=== PATIENT | male | born 1995 | race Caucasian/White ===

== ENCOUNTER 2019-07-12 17:34 | Observation (INO) | payer BC, OTHER ==
[~2019-07-12] VITALS: Ht 187.9 cm; Wt 73.8 kg
[2019-07-12] MEDS ORDERED: LACTATED RINGERS 1,000 ML IV ONE (17:39)
--- NOTE | 2019-07-12 17:44 | ED General ---
General Stated Complaint: CONFUSION, LETHARGIC Source of Information: Other (friends) Exam Limitations: No Limitations History of Present Illness Date Seen by Provider: Jul 12, 2019 Time Seen by Provider: 17:42 Initial Comments To ER by private vehicle with reports of unresponsiveness. He was part of the choir group that was going to a performance, a female that was with him notified the rest of the choir that he was unresponsive and they recommended she bring him to the emergency room. They went to the entrance initially and decided to walk from that entrance to the emergency room entrance. During that walk he collapsed on the sidewalk. No history of this. He did appear to have seizure- like activity according to friends. He is otherwise healthy. Girlfriend states that he had several episodes of vomiting yesterday from what was believed to be bad [place] food. Timing/Duration: 1-2 Days Severity: Moderate Allergies and Home Medications Allergies Coded Allergies: No Allergy Information Available (Unverified , 07/12/19) Patient Home Medication List Home Medication List Reviewed: Yes Review of Systems Review of Systems Constitutional: see HPI, other (unable to obtain due to altered mental status) Past Ywczkly-Grptad-Wqxfen Hx Patient Social History Recent Foreign Travel: No Contact w/Someone Who Travel: No Physical Exam Vital Signs Vital Signs - First Documented 07/12/19 17:34 Temp 36.7 Pulse 126 Resp 22 B/P (MAP) 138/71 (93) Pulse Ox 98 O2 Delivery Room Air Capillary Refill : Height, Weight, BMI Height: '" Weight: lbs. oz. kg; BMI Method: General Appearance: Other (placed in a wheelchair bias brought to the emergency room, snoring respirations, drooling, pupils are not pinpoint. He has alternating lethargy and then awakens and sits upright in bed but does not respond verbally. He is tachycardic at about 120 to 1:30. Blood pressure is adequate he is not febrile. He has an abrasion to the dorsal knuckle right hand.) Eyes: Bilateral Eye Normal Inspection, Bilateral Eye PERRL HEENT: PERRL/EOMI, TMs Normal Respiratory: No Accessory Muscle Use, No Respiratory Distress Gastrointestinal: Non Tender, Soft Extremity: Normal Capillary Refill, Normal Inspection Neurologic/Psychiatric: Alert, Oriented x3 Skin: Normal Color, Warm/Dry Focused Exam Lactate Level 07/12/19 18:22: Lactic Acid Level 6.26*H Lactic Acid Level Laboratory Tests Test 07/12/19 18:22 Lactic Acid Level 6.26 MMOL/L (0.50-2.00) *H Progress/Results/Core Measures Suspected Sepsis SIRS Temperature: Pulse: Respiratory Rate: Laboratory Tests 07/12/19 17:42: White Blood Count 15.5H Blood Pressure / Mean: 07/12/19 18:22: Lactic Acid Level 6.26*H Laboratory Tests 07/12/19 17:42: Creatinine 1.03, Platelet Count 287, Total Bilirubin 0.7 Results/Orders Lab Results Laboratory Tests Test 07/12/19 17:42 07/12/19 17:54 07/12/19 18:22 Range/Units White Blood Count 15.5 H 4.3-11.0 10^3/uL Red Blood Count 4.83 4.35-5.85 10^6/uL Hemoglobin 14.9 13.3-17.7 G/DL Hematocrit 43 40-54 % Mean Corpuscular Volume 88 80-99 FL Mean Corpuscular Hemoglobin 31 25-34 PG Mean Corpuscular Hemoglobin Concent 35 32-36 G/DL Red Cell Distribution Width 13.5 10.0-14.5 % Platelet Count 287 130-400 10^3/uL Mean Platelet Volume 10.1 7.4-10.4 FL Neutrophils (%) (Auto) 56 42-75 % Lymphocytes (%) (Auto) 32 12-44 % Monocytes (%) (Auto) 10 0-12 % Eosinophils (%) (Auto) 1 0-10 % Basophils (%) (Auto) 1 0-10 % Neutrophils # (Auto) 8.6 H 1.8-7.8 X 10^3 Lymphocytes # (Auto) 5.0 H 1.0-4.0 X 10^3 Monocytes # (Auto) 1.6 H 0.0-1.0 X 10^3 Eosinophils # (Auto) 0.2 0.0-0.3 10^3/uL Basophils # (Auto) 0.1 0.0-0.1 10^3/uL Neutrophils % (Manual) 90 % Lymphocytes % (Manual) 29 % Monocytes % (Manual) 10 % Eosinophils % (Manual) 1 % Band Neutrophils % Blood Morphology Comment NORMAL Sodium Level 145 135-145 MMOL/L Potassium Level 3.4 L 3.6-5.0 MMOL/L Chloride Level 106 98-107 MMOL/L Carbon Dioxide Level 13 L 21-32 MMOL/L Anion Gap 26 H 5-14 MMOL/L Blood Urea Nitrogen 11 7-18 MG/DL Creatinine 1.03 0.60-1.30 MG/DL Estimat Glomerular Filtration Rate > 60 BUN/Creatinine Ratio 11 Glucose Level 159 H 70-105 MG/DL Calcium Level 9.9 8.5-10.1 MG/DL Corrected Calcium 8.5-10.1 MG/DL Total Bilirubin 0.7 0.1-1.0 MG/DL Aspartate Amino Transf (AST/SGOT) 20 5-34 U/L Alanine Aminotransferase (ALT/SGPT) 18 0-55 U/L Alkaline Phosphatase 80 40-136 U/L Total Creatine Kinase 153 30-200 U/L Total Protein 8.0 6.4-8.2 GM/DL Albumin 5.2 H 3.2-4.5 GM/DL Salicylates Level < 5.0 L 5.0-20.0 MG/DL Acetaminophen Level < 10 L 10-30 UG/ML Serum Alcohol < 10 <10 MG/DL Urine Color YELLOW Urine Clarity CLOUDY Urine pH 6.0 5-9 Urine Specific [place] >=1.030 1.016-1.022 Urine Protein 2+ H NEGATIVE Urine Glucose (UA) NEGATIVE NEGATIVE Urine Ketones NEGATIVE NEGATIVE Urine Nitrite NEGATIVE NEGATIVE Urine Bilirubin NEGATIVE NEGATIVE Urine Urobilinogen 0.2 < = 1.0 MG/DL Urine Leukocyte Esterase NEGATIVE NEGATIVE Urine RBC (Auto) 2+ H NEGATIVE Urine RBC 5-10 H /HPF Urine WBC RARE /HPF Urine Crystals NONE /LPF Urine Bacteria MODERATE H /HPF Urine Casts NONE /LPF Urine White Blood Cell Casts 5-10 H /LPF Urine Mucus MODERATE H /LPF Urine Culture Indicated YES Urine Opiates Screen NEGATIVE NEGATIVE Urine Oxycodone Screen NEGATIVE NEGATIVE Urine Methadone Screen NEGATIVE NEGATIVE Urine Propoxyphene Screen NEGATIVE NEGATIVE Urine Barbiturates Screen NEGATIVE NEGATIVE Ur Tricyclic Antidepressants Screen NEGATIVE NEGATIVE Urine Phencyclidine Screen NEGATIVE NEGATIVE Urine Amphetamines Screen NEGATIVE NEGATIVE Urine Methamphetamines Screen NEGATIVE NEGATIVE Urine Benzodiazepines Screen NEGATIVE NEGATIVE Urine Cocaine Screen NEGATIVE NEGATIVE Urine Cannabinoids Screen NEGATIVE NEGATIVE Lactic Acid Level 6.26 *H 0.50-2.00 MMOL/L My Orders Orders - BILL RYAN APRN Ct Head/Cervical Spine Wo (07/12/19 17:52) Lactic Acid Analyzer (07/12/19 18:18) Prolactin (07/12/19 18:39) Creatine Kinase (07/12/19 18:39) Medications Given in ED Current Medications Medications Dose Ordered Sig/Dunia Route Start Time Stop Time Status Last Admin Dose Admin Lactated Ringer's 1,000 ml @ 0 mls/hr Q0M ONCE IV 07/12/19 17:39 07/12/19 17:43 DC 07/12/19 17:46 0 MLS/HR Naloxone HCl 0.4 mg ONCE ONCE IV 07/12/19 17:45 07/12/19 17:46 DC 07/12/19 17:46 0.4 MG Vital Signs/I&O 07/12/19 17:34 Temp 36.7 Pulse 126 Resp 22 B/P (MAP) 138/71 (93) Pulse Ox 98 O2 Delivery Room Air Capillary Refill : Diagnostic Imaging Diagonstic Imaging: CT Comments NAME: ANNABEL BARTON [facility] REC#: [id number] PT STATUS: REG ER : 1995 PHYSICIAN: BILL RYAN APRN ADMIT DATE: 07/12/19/ER Draft Date of Exam:07/12/19 CT HEAD/CERVICAL SPINE WO PROCEDURE: CT head and CT cervical spine without contrast. TECHNIQUE: Multiple contiguous axial images were obtained through the brain and cervical spine without the use of intravenous contrast. Sagittal and coronal reformations through the cervical spine were then performed. Auto Exposure Controls were utilized during the CT exam to meet ALARA standards for radiation dose reduction. INDICATION: Confusion, lethargy, seizure-like activity. COMPARISON STUDY: None. FINDINGS: Noncontrast CT scan of the head demonstrates no mass effect, midline shift, hemorrhage or extra-axial fluid collections. Ricketts-white matter differentiation is normal. Ventricles, cortical sulci, and basilar cisterns are normal. No fractures are present. Cervical spine: Noncontrast CT scan of the cervical spine demonstrates no fracture or subluxation. The soft tissues appear normal. No stenosis is present. IMPRESSION: Normal CT scan of the head and cervical spine. Dictated on workstation # [id number] Dict: 03/02/20 1813 Trans: 07/12/191818 [facility] [id number] Interpreted by: JANET YUNG MD Electronically signed by: Departure Communication (Admissions) Time/Spoke to Admitting Phy: 18:[address] Silveira, we'll admit with observation, anion gap was high with CO2 low, suspect lactic acidosis as a result of true seizure disorder. I spoke with mother on the phone, she herself had a seizure at about this age but hasn't had any troubles since then. He denies any recent illnesses, strep throat symptoms such as sore throat or fevers or cough. I questioned the specifically after reviewing his urinalysis. 1750-0.4 mg of Narcan had no effect on mentation or alertness. 1841-he is alert, knows he is at the hospital, doesn't remember what happened. I spoke with mother on the phone, she states that at about his age or in high school she had a seizure episode but has had no problems since then. She states she is otherwise healthy. His heart rate has declined from 120s to 130s on arrival down to 80s. He did not bite his tongue or lose control of bowel and bladder. Serum prolactin ordered as this is helpful in differentiating pseudoseizures from epileptic seizures if elevated. This is a send out test but will be helpful for follow-up care Impression Primary Impression: Seizure-like activity Disposition: ADMITTED INPATIENT Condition: Stable Admissions Decision to Admit Reason: Admit from ER (General) Decision to Admit/Date: Jul 12, 2019 Time/Decision to Admit Time: 18:35 Departure-Patient Inst. Referrals: NO,LOCAL PHYSICIAN (PCP) Primary Care Physician BILL RYAN APRN Jul 12, 2019 17:44
[2019-07-12] MEDS ORDERED: NALOXONE 0.4 MG/ML 1 ML (NARCAN) VIAL IV ONE (17:45)
[2019-07-12 17:48] LABS: BASOPHILS # (AUTO) 0.1 10^3/uL (0.0-0.1); BASOPHILS % (AUTO) 1 % (0-10); EOSINOPHILS # (AUTO) 0.2 10^3/uL (0.0-0.3); EOSINOPHILS % (AUTO) 1 % (0-10); HEMATOCRIT 43 % (40-54); HEMOGLOBIN 14.9 G/DL (13.3-17.7); LYMPHOCYTES % (AUTO) 32 % (12-44); MEAN CORPUSCULAR HEMOGLOBIN 31 PG (25-34); MEAN CORPUSCULAR HGB CONC 35 G/DL (32-36); MEAN CORPUSCULAR VOLUME 88 FL (80-99); MEAN PLATELET VOLUME 10.1 FL (7.4-10.4); MONOCYTES # (AUTO) 1.6 X 10^3 (0.0-1.0); MONOCYTES % (AUTO) 10 % (0-12); NEUTROPHILS # (AUTO) 8.6 X 10^3 (1.8-7.8); NEUTROPHILS % (AUTO) 56 % (42-75); PLATELET COUNT 287 10^3/uL (130-400); RED CELL DISTRIBUTION WIDTH 13.5 % (10.0-14.5); WHITE BLOOD COUNT 15.5 10^3/uL (4.3-11.0)
[2019-07-12 18:01] LABS: BILIRUBIN,URINE NEGATIVE (NEGATIVE); CLARITY,URINE CLOUDY; COLOR,URINE YELLOW; GLUCOSE, URINE (UA) NEGATIVE (NEGATIVE); KETONES,URINE NEGATIVE (NEGATIVE); LEUKOCYTE ESTERASE ,URINE NEGATIVE (NEGATIVE); NITRITE,URINE NEGATIVE (NEGATIVE); PROTEIN,URINE 2+ (NEGATIVE)
[2019-07-12 18:09] LABS: BACTERIA,URINE MODERATE /HPF; WBC,URINE RARE /HPF
[2019-07-12 18:14] LABS: ALANINE AMINOTRANSFERASE 18 U/L (0-55); ALBUMIN 5.2 GM/DL (3.2-4.5); ALKALINE PHOSPHATASE 80 U/L (40-136); BILIRUBIN,TOTAL 0.7 MG/DL (0.1-1.0); BUN/CREATININE RATIO 11; CALCIUM 9.9 MG/DL (8.5-10.1); CARBON DIOXIDE 13 MMOL/L (21-32); CHLORIDE 106 MMOL/L (98-107); CREATININE SERUM 1.03 MG/DL (0.60-1.30); GFR ESTIMATED > 60; GLUCOSE 159 MG/DL (70-105); POTASSIUM 3.4 MMOL/L (3.6-5.0); SALICYLATE < 5.0 MG/DL (5.0-20.0); SODIUM 145 MMOL/L (135-145)
[2019-07-12 18:17] LABS: ACETAMINOPHEN < 10 UG/ML (10-30)
[2019-07-12 18:18] LABS: EOSINOPHILS % (MANUAL) 1 %; LYMPHOCYTES % (MANUAL) 29 %; MONOCYTES % (MANUAL) 10 %; NEUTROPHILS % (MANUAL) 90 %
[2019-07-12 18:19] LABS: RBC MORPH NORMAL
--- NOTE | 2019-07-12 18:19 | Diagnostic Imaging Report ---
PROCEDURE: CT head and CT cervical spine without contrast. TECHNIQUE: Multiple contiguous axial images were obtained through the brain and cervical spine without the use of intravenous contrast. Sagittal and coronal reformations through the cervical spine were then performed. Auto Exposure Controls were utilized during the CT exam to meet ALARA standards for radiation dose reduction. INDICATION: Confusion, lethargy, seizure-like activity. COMPARISON STUDY: None. FINDINGS: Noncontrast CT scan of the head demonstrates no mass effect, midline shift, hemorrhage or extra-axial fluid collections. Ricketts-white matter differentiation is normal. Ventricles, cortical sulci, and basilar cisterns are normal. No fractures are present. Cervical spine: Noncontrast CT scan of the cervical spine demonstrates no fracture or subluxation. The soft tissues appear normal. No stenosis is present. IMPRESSION: Normal CT scan of the head and cervical spine. Dictated by: Dictated on workstation # [id number]
[2019-07-12 18:20] LABS: AMPHETAMINE SCREEN, URINE NEGATIVE (NEGATIVE); BARBITURATE SCREEN URINE NEGATIVE (NEGATIVE); BENZODIAZEPINES SCREEN URINE NEGATIVE (NEGATIVE); CANNABINOID SCREEN, URINE NEGATIVE (NEGATIVE); COCAINE SCREEN URINE NEGATIVE (NEGATIVE); METHADONE STAT NEGATIVE (NEGATIVE); METHAMPHETAMINE SCREEN URINE S NEGATIVE (NEGATIVE); OPIATE SCREEN URINE NEGATIVE (NEGATIVE); OXYCODONE STAT NEGATIVE (NEGATIVE); PROPOXYPHENE STAT NEGATIVE (NEGATIVE); TRICYCLIC ANTIDEPRESSANTS SCRE NEGATIVE (NEGATIVE)
--- NOTE | 2019-07-12 20:00 | NUR ---
ANNABEL BARTON admitted to room 433-1, with an admitting diagnosis of SEIZURE LIKE ACTIVITY, on 07/12/19 from ED via , accompanied by ED STAFF. ANNABEL BARTON introduced to surroundings, call light, bed controls, phone, TV, temperature control, lights, meal times, smoking policy, visitor policy, side rail policy, bathrooms and showers. Patient Rights given to patient in the handbook. ANNABEL BARTON verbalizes understanding that [facility] is not responsible for the loss or damage to any personal effects or valuables that are kept in the patients posession during their hospitalization. ANNABEL BARTON verbalizes understanding of Interdisciplinary Patient Education. Patient and/or family were informed about the Rapid Response Team and its purpose.
[2019-07-12] MEDS ORDERED: ONDANSETRON 4 MG/2 ML (SDV) Z0FRAN IV PRN (20:15)
[2019-07-12] MEDS ORDERED: LORazepam INJ 2 MG/ML (ATIVAN) VIAL IM/IV PRN (20:15)
[2019-07-12] MEDS ORDERED: CATHETER FLUSH 10 ML SYR IV PRN (20:15)
[2019-07-12] MEDS: NS IV 1000 ML 1,000 ML IV SCH (20:28)
[2019-07-12 21:33] VITALS: BP 128/63
[2019-07-13] VITALS: BP 111/67
[2019-07-13 04:00] VITALS: BP 114/68
[2019-07-13] MEDS: NS IV 1000 ML 1,000 ML IV SCH (04:28)
[2019-07-13 05:22] LABS: BASOPHILS % (AUTO) 0 % (0-10); EOSINOPHILS # (AUTO) 0.2 10^3/uL (0.0-0.3); EOSINOPHILS % (AUTO) 2 % (0-10); HEMATOCRIT 36 % (40-54); HEMOGLOBIN 12.6 G/DL (13.3-17.7); LYMPHOCYTES % (AUTO) 21 % (12-44); MEAN CORPUSCULAR HEMOGLOBIN 31 PG (25-34); MEAN CORPUSCULAR HGB CONC 35 G/DL (32-36); MEAN CORPUSCULAR VOLUME 88 FL (80-99); MEAN PLATELET VOLUME 9.9 FL (7.4-10.4); MONOCYTES % (AUTO) 10 % (0-12); NEUTROPHILS # (AUTO) 6.5 X 10^3 (1.8-7.8); NEUTROPHILS % (AUTO) 67 % (42-75); PLATELET COUNT 186 10^3/uL (130-400); RED CELL DISTRIBUTION WIDTH 13.3 % (10.0-14.5); WHITE BLOOD COUNT 9.6 10^3/uL (4.3-11.0)
[2019-07-13 05:37] LABS: ALANINE AMINOTRANSFERASE 16 U/L (0-55); ALKALINE PHOSPHATASE 61 U/L (40-136); BILIRUBIN,TOTAL 0.8 MG/DL (0.1-1.0); BUN/CREATININE RATIO 13; CALCIUM 9.1 MG/DL (8.5-10.1); CARBON DIOXIDE 23 MMOL/L (21-32); CHLORIDE 106 MMOL/L (98-107); CREATININE SERUM 0.84 MG/DL (0.60-1.30); GFR ESTIMATED > 60; GLUCOSE 111 MG/DL (70-105); POTASSIUM 3.4 MMOL/L (3.6-5.0); SODIUM 141 MMOL/L (135-145)
[2019-07-13] MEDS ORDERED: ACETAMINOPHEN 325 MG TABLET PO PRN (07:15)
[2019-07-13 08:00] VITALS: BP 118/51
[2019-07-13] MEDS ORDERED: CETI10TA21 PO (09:49)
[2019-07-13] MEDS ORDERED: ACET325T38 PO (09:49)
--- NOTE | 2019-07-13 09:50 | NUR ---
SPOKE WITH THE PT TO COMPLETE THE MED REC. PT DENIES TAKING ANY PRESCRIPTION MEDICATION AND THE ONLY OTC MEDS HE USES ARE TYLENOL AND ZYRTEC AND BOTH ARE PRN. I DID UPDATE THE PATIENT PREFERRED PHARM.
[2019-07-13 12:00] VITALS: BP 117/57
--- NOTE | 2019-07-13 12:55 | NUR ---
PT REPORTS NO TROUBLE URINATING AFTER USING THE RESTROOM. DR HO NOTIFIED. PT INSTRUCTED TO NOTIFY DR IF SYMPTOMS OF BURNING/HESITANCY RETURN.
--- NOTE | 2019-07-13 12:59 | Short Stay Summary-Hospitalist ---
History of Present Illness HPI/Chief Complaint This is a 23-year-old white male who who presented to the emergency room last evening with confusion and lethargy and tonic-clonic jerking. The patient had become intoxicated 24 hours before and had been vomiting overnight. He then went to his class yesterday morning as normal but felt a little fuzzy headed and then went require practice where he was becoming increasingly more disoriented. He was confused and has no memory of really what was transpiring at this juncture. His girlfriend gave the primary history. She notes that he was stumbling and was unable to answer questions appropriately. He then fell to the ground and began having tonic-clonic jerking without loss of continence. In addition he began vomiting and she rolled him on his side and opened his jaw also so He wouldn't aspirate. She was able to transport him by private vehicle to the emergency room where he was found to be lethargic and somewhat confused. Labs showed an elevated white count with an elevated lactic acid and positive a nion gap. Urine drug screen and alcohol level was negative. The patient then remained begins to remember being down in the emergency room and being transported upstairs. The interview today was done with his girlfriend in the room and his mother. His mother had had a history of a seizure at about the same age and is never had a recurrence. Source: patient, family Exam Limitations: no limitations Date Seen 07/13/19 Time Seen by a Provider: 11:45 Attending Physician Debby Solo MD Referring Physician Date of Admission Jul 12, 2019 at 18:37 Home Medications & Allergies Home Medications Reviewed patient Home Medication Reconciliation performed by pharmacy medication reconciliations cable technician and/or nursing. Patients Allergies have been reviewed. Allergies Allergies Coded Allergies No Allergy Information Available (Unverified07/12/19) Past Ucinptg-Ftnlmy-Egvapq Hx Past Med/Social Hx: Reviewed Nursing Past Med/Soc Hx Patient Social History Marrital Status: single Employed/Student: student, full-time Alcohol Use: Denies Use Recreational Drug Use: No Smoking Status: Never a Smoker Recent Foreign Travel: No Contact w/other who traveled: No Recent Hopitalizations: No Recent Infectious Disease Expo: No Immunizations Up To Date Tetanus Booster (TDap): Unknown Pediatric: Yes Seasonal Allergies Seasonal Allergies: Yes Past Medical History Respiratory: Asthma (As a child) History of Blood Disorders: No Review of Systems Constitutional: see HPI EENTM: no symptoms reported Respiratory: no symptoms reported Cardiovascular: no symptoms reported Gastrointestinal: vomiting Genitourinary: no symptoms reported Musculoskeletal: no symptoms reported Skin: no symptoms reported Psychiatric/Neurological: No Symptoms Reported Physical Exam Physical Exam Vital Signs Vital Signs - First Documented 07/12/19 17:34 Temp 36.7 Pulse 126 Resp 22 B/P (MAP) 138/71 (93) Pulse Ox 98 O2 Delivery Room Air Capillary Refill : Less Than 3 Seconds Height, Weight, BMI Height: '" Weight: lbs. oz. kg; 20.90 BMI Method: General Appearance: No Apparent Distress, WD/WN, Other (placed in a wheelchair bias brought to the emergency room, snoring respirations, drooling, pupils are not pinpoint. He has alternating lethargy and then awakens and sits upright in bed but does not respond verbally. He is tachycardic at about 120 to 1:30. Blood pressure is adequate he is not febrile. He has an abrasion to the dorsal knuckle right hand.) Eyes: Bilateral Eye Normal Inspection, Bilateral Eye PERRL HEENT: PERRL/EOMI, TMs Normal Respiratory: No Accessory Muscle Use, No Respiratory Distress Gastrointestinal: Non Tender, Soft Extremity: Normal Capillary Refill, Normal Inspection Neurologic/Psychiatric: Alert, Oriented x3 Skin: Normal Color, Warm/Dry Results Results/Procedures Labs Laboratory Tests 07/12/19 17:42 07/13/19 04:57 Patient resulted labs reviewed. Imaging: Reviewed Imaging Report Short Stay Diagnosis Discharge Diagnosis-Short Stay Admission Diagnosis New onset seizures Lactic acidosis secondary to number 1 Dehydration The patient overnight has been stable and hydrated. He is urinating and neurologically is completely intact. Final Discharge Diagnosis New onset seizures Lactic acidosis resolved Dehydration resolved Plan to discharge with close follow-up at the [facility]. The patient is instructed not to drive. He is also instructed to not drink and to avoid dehydration and fatigue. He is advised that if the seizures recur then we will need to refer to neurologist with an EEG and medications Conclusion Plan Discharge home in the care of his mother and girlfriend. Follow-up with Dr. Ho at the [facility] on Thursday. Do not drive for at least 6 months. Diagnosis/Problems Diagnosis/Problems (1) Seizure-like activity Status: Acute Clinical Quality Measures DVT/VTE Risk/Contraindication: Risk Factor Score Per Nursin RFS Level Per Nursing on Admit: 1=Low/No VTE PPX Copy Copies To 1: MARZENA HO MD, KATHLEEN M MD Jul 13, 2019 12:59
[2019-07-13 14:19] VITALS: BP 117/57
--- OUTSIDE RECORDS SUMMARY | 2019-07-14 21:35 | XMS REPORT ---
Author Author Hardy Vaz Organization [facility] Address [address] [place] [address] Care Team Providers Care Senior Payroll Specialist Name Role Phone Bridgette Vaz Unavailable PROBLEMS Type Condition ICD9-CM Code [id number] Code Onset Dates Condition S tatus SNOMED Code Problem Cough variant asthma 493.82 Active 021313181 Problem Asthma, unspecified 493.90 Active 860655093 Problem Wellness examination Z00.00 Active 248917334783783 Problem Cough Variant Asthma J45.991 Active 670561290 Problem Ocular migraine 346.80 Active 9565 5001 Problem Acne vulgaris 706.1 Active 371012 05 Problem Acne Vulgaris L70.0 Active 168739 00 Problem Other migraine, not intractable, without status migrainosu s G43.809 Active 116834444 ALLERGIES Unknown Allergies SOCIAL HISTORY No smoking Hx information available PLAN OF CARE VITAL SIGNS MEDICATIONS Unknown Medications RESULTS No Results PROCEDURES No Known procedures IMMUNIZATIONS No Known Immunizations
--- OUTSIDE RECORDS SUMMARY | 2019-07-14 21:35 | XMS REPORT ---
Author Author Hardy Vaz Organization [facility] Address [address] [place] [address] Care Team Providers Care Shoe Cobbler Name Role Phone Bridgette Vaz Unavailable PROBLEMS Type Condition ICD9-CM Code [id number] Code Onset Dates Condition S tatus SNOMED Code Problem Asthma, unspecified 493.90 Active 028949410 Problem Cough Variant Asthma J45.991 Active 113000030 Problem Acne Vulgaris L70.0 Active 232285 00 Problem Acne vulgaris 706.1 Active 251659 05 Problem Cough variant asthma 493.82 Active 389861631 Problem Other migraine, not intractable, without status migrainosu s G43.809 Active 448518005 Problem Ocular migraine 346.80 Active 9565 5001 ALLERGIES Unknown Allergies SOCIAL HISTORY No smoking Hx information available PLAN OF CARE VITAL SIGNS MEDICATIONS Unknown Medications RESULTS No Results PROCEDURES No Known procedures IMMUNIZATIONS No Known Immunizations
== END 2019-07-13 14:19 | disposition home or self-care (01) ==
LOC: ER 17:38 → 4TH 18:37
PROVIDERS: ADMIT Family Medicine; ATTEND Family Medicine
DX: E56.9 Vitamin deficiency, unspecified (principal); R41.0 Disorientation, unspecified; E87.2 Acidosis; E86.0 Dehydration; J45.909 Unspecified asthma, uncomplicated
CPT/HCPCS: 36415; 70450; 72125; 80053; 80306; 80320; 80329; 81000; 82550; 83605; 84146; 85007; 85025; 85027; 87088; 93005; 93041; G0378

== ENCOUNTER 2019-07-27 20:13 | Observation (INO) | payer BC ==
[~2019-07-27] VITALS: Ht 185.4 cm; Wt 74.8 kg
[~2019-07-27 20:13] MED LIST: ACET325T38 PO; CETI10TA21 PO
[2019-07-27] MEDS ORDERED: ONDANSETRON 4 MG/2 ML (SDV) Z0FRAN IVP ONE (20:15)
[2019-07-27] MEDS ORDERED: LACTATED RINGERS 1,000 ML IV ONE ×2 (20:15→20:58)
--- NOTE | 2019-07-27 20:22 | ED Neurological Problem ---
General Stated Complaint: SEIZURE History of Present Illness Date Seen by Provider: Jul 27, 2019 Time Seen by Provider: 20:15 Initial Comments 23-year-old male brought by friends to the emergency department after having a seizure at approximately 1945 tonight. His friends report that he was standing on the porch with them when he sat himself down on the ground and then began to convulse. They believe it lasted approximately 30 seconds. They were able to assist him to the car and drive him here. He was seen here earlier this month for new onset seizure disorder, he had labs and CT study. His prolactin level was 82.2. He did have follow-up at [facility] with Dr. Ho and they were going to observe him at this time to determine if medication would be needed or not. He's had no history of seizures in the past. His mother is in health care in [facility] and reports seizure disorder that began at approximately the same age as her son is now. He no incontinence with the seizure tonight. He is nonverbal at presentation to the ED. Timing/Duration: 1 hour Associated Symptoms: No confusion, No fatigue, No fever/chills, No insomnia, No loss of consciousness, No muscle spasms, No nausea/vomiting, No numbness in legs/feet, No paresthesia, No ringing in ears; seizures; No sleepy, No slurred speech, No tingling in legs/feet, No trouble walking, No vision changes, No weakness, No other Allergies and Home Medications Allergies Coded Allergies: No Allergy Information Available (Unverified , 07/12/19) Home Medications Acetaminophen 325 Mg Tablet, 650 MG PO Q8H PRN for PAIN-MILD (1-4), (Reported) Cetirizine HCl 10 Mg Tablet, 10 MG PO DAILY PRN for ALLERGY SYMPTOMS, (Reported) Levetiracetam 500 Mg Tablet, 500 MG PO BID Prescribed by: DELORIS PEÑA on 07/27/192114 Patient Home Medication List Home Medication List Reviewed: Yes Review of Systems Review of Systems Constitutional: no symptoms reported, see HPI Psychiatric/Neurological: See HPI, [place] Seizures All Other Systems Reviewed Negative Unless Noted: Yes Past Ormwygi-Xrbfxk-Xhbdkk Hx Past Med/Social Hx: Reviewed Nursing Past Med/Soc Hx Patient Social History Recent Hopitalizations: No Immunizations Up To Date Tetanus Booster (TDap): Unknown PED Vaccines UTD: Yes Seasonal Allergies Seasonal Allergies: Yes Past Medical History Surgeries: No Respiratory: No Cardiac: No Neurological: No Genitourinary: No Gastrointestinal: No Musculoskeletal: No Endocrine: No HEENT: No Cancer: No Psychosocial: No Integumentary: No Blood Disorders: No Physical Exam Vital Signs Vital Signs - First Documented 07/27/19 20:13 Temp 37.0 Pulse 110 Resp 18 B/P (MAP) 148/85 (106) O2 Delivery Room Air Capillary Refill : Height, Weight, BMI Height: '" Weight: lbs. oz. kg; 20.90 BMI Method: General Appearance: WD/WN, mild distress HEENT: PERRL/EOMI, normal ENT inspection, TMs normal, pharynx normal Neck: non-tender, full range of motion, supple, normal inspection Respiratory: chest non-tender, lungs clear, normal breath sounds Cardiovascular: normal peripheral pulses, regular rate, rhythm Gastrointestinal: normal bowel sounds, non tender, soft Extremities: normal range of motion, non-tender, normal inspection, normal capillary refill Neurologic/Psychiatric: no motor/sensory deficits, alert, normal mood/affect, oriented x 3 Crainal Nerves: normal hearing; No normal speech; PERRL; No facial asymmetry, No facial droop Motor/Sensory: no motor deficit (Follows all commands), no sensory deficit (withdrawals to painful stimuli (IV)) Skin: normal color, warm/dry Lymphatic: no adenopathy Progress/Results/Core Measures Results/Orders Lab Results Laboratory Tests Test 07/27/19 20:18 07/27/19 20:20 07/27/19 20:25 Range/Units Glucometer 131 H 70-110 MG/DL White Blood Count 17.7 H 4.3-11.0 10^3/uL Red Blood Count 5.19 4.35-5.85 10^6/uL Hemoglobin 16.0 13.3-17.7 G/DL Hematocrit 45 40-54 % Mean Corpuscular Volume 87 80-99 FL Mean Corpuscular Hemoglobin 31 25-34 PG Mean Corpuscular Hemoglobin Concent 36 32-36 G/DL Red Cell Distribution Width 13.3 10.0-14.5 % Platelet Count 321 130-400 10^3/uL Mean Platelet Volume 10.0 7.4-10.4 FL Neutrophils (%) (Auto) 68 42-75 % Lymphocytes (%) (Auto) 23 12-44 % Monocytes (%) (Auto) 8 0-12 % Eosinophils (%) (Auto) 0 0-10 % Basophils (%) (Auto) 0 0-10 % Neutrophils # (Auto) 12.0 H 1.8-7.8 X 10^3 Lymphocytes # (Auto) 4.1 H 1.0-4.0 X 10^3 Monocytes # (Auto) 1.5 H 0.0-1.0 X 10^3 Eosinophils # (Auto) 0.1 0.0-0.3 10^3/uL Basophils # (Auto) 0.0 0.0-0.1 10^3/uL Neutrophils % (Manual) 65 % Lymphocytes % (Manual) 26 % Monocytes % (Manual) 8 % Basophils % (Manual) 1 % Blood Morphology Comment NORMAL Prothrombin Time 14.3 12.2-14.7 SEC INR Comment 1.1 0.8-1.4 Activated Partial Thromboplast Time 29 24-35 SEC Sodium Level 140 135-145 MMOL/L Potassium Level 3.7 3.6-5.0 MMOL/L Chloride Level 102 98-107 MMOL/L Carbon Dioxide Level 13 L 21-32 MMOL/L Anion Gap 25 H 5-14 MMOL/L Blood Urea Nitrogen 11 7-18 MG/DL Creatinine 1.13 0.60-1.30 MG/DL Estimat Glomerular Filtration Rate > 60 BUN/Creatinine Ratio 10 Glucose Level 137 H 70-105 MG/DL Calcium Level 9.9 8.5-10.1 MG/DL Corrected Calcium 8.5-10.1 MG/DL Magnesium Level 2.1 1.6-2.4 MG/DL Total Bilirubin 0.7 0.1-1.0 MG/DL Aspartate Amino Transf (AST/SGOT) 20 5-34 U/L Alanine Aminotransferase (ALT/SGPT) 21 0-55 U/L Alkaline Phosphatase 102 40-136 U/L Total Creatine Kinase 246 H 30-200 U/L Creatine Kinase MB 2.2 <6.6 NG/ML Myoglobin 173.7 H 10.0-92.0 NG/ML Total Protein 8.5 H 6.4-8.2 GM/DL Albumin 5.5 H 3.2-4.5 GM/DL TSH [place] Testing 2.11 0.35-4.94 UIU/ML Salicylates Level < 5.0 L 5.0-20.0 MG/DL Acetaminophen Level < 10 L 10-30 UG/ML Serum Alcohol < 10 <10 MG/DL Urine Color YELLOW Urine Clarity CLEAR Urine pH 5.5 5-9 Urine Specific [place] >=1.030 1.016-1.022 Urine Protein 1+ H NEGATIVE Urine Glucose (UA) NEGATIVE NEGATIVE Urine Ketones TRACE H NEGATIVE Urine Nitrite NEGATIVE NEGATIVE Urine Bilirubin NEGATIVE NEGATIVE Urine Urobilinogen 0.2 < = 1.0 MG/DL Urine Leukocyte Esterase NEGATIVE NEGATIVE Urine RBC (Auto) 1+ H NEGATIVE Urine RBC RARE /HPF Urine WBC NONE /HPF Urine Squamous Epithelial Cells 0-2 /HPF Urine Crystals NONE /LPF Urine Bacteria NEGATIVE /HPF Urine Casts NONE /LPF Urine Mucus NEGATIVE /LPF Urine Culture Indicated NO Urine Opiates Screen NEGATIVE NEGATIVE Urine Oxycodone Screen NEGATIVE NEGATIVE Urine Methadone Screen NEGATIVE NEGATIVE Urine Propoxyphene Screen NEGATIVE NEGATIVE Urine Barbiturates Screen NEGATIVE NEGATIVE Ur Tricyclic Antidepressants Screen NEGATIVE NEGATIVE Urine Phencyclidine Screen NEGATIVE NEGATIVE Urine Amphetamines Screen NEGATIVE NEGATIVE Urine Methamphetamines Screen NEGATIVE NEGATIVE Urine Benzodiazepines Screen NEGATIVE NEGATIVE Urine Cocaine Screen NEGATIVE NEGATIVE Urine Cannabinoids Screen NEGATIVE NEGATIVE My Orders Orders - DELORIS PEÑA Levetiracetam Injection (Keppra Injectio (07/27/19 20:45) Ed Iv/Invasive Line Start (07/27/19 20:58) Lactated Ringers (Lr 1000 Ml Iv Solution (07/27/19 20:58) Medications Given in ED Current Medications Medications Dose Ordered Sig/Dunia Route Start Time Stop Time Status Last Admin Dose Admin Lactated Ringer's 1,000 ml @ 0 mls/hr Q0M ONCE IV 07/27/19 20:15 07/27/19 20:18 DC 07/27/19 20:28 0 MLS/HR Lactated Ringer's 1,000 ml @ 0 mls/hr Q0M ONCE IV 07/27/19 20:58 07/27/19 20:59 DC 07/27/19 21:13 999 MLS/HR Levetiracetam 500 mg/Sodium Chloride 55 ml @ 100 mls/hr ONCE ONCE IV 07/27/19 20:45 07/27/19 21:17 DC 07/27/19 21:13 100 MLS/HR Ondansetron HCl 4 mg ONCE ONCE IVP 07/27/19 20:15 07/27/19 20:18 DC 07/27/19 20:28 4 MG Vital Signs/I&O 07/27/19 20:13 Temp 37.0 Pulse 110 Resp 18 B/P (MAP) 148/85 (106) O2 Delivery Room Air Progress Progress Note : Time: 20:15 Progress Note Patient seen and evaluated, reviewed admission for him earlier this month. He did have a CT at that time. No indication repeat the CT at this time as he had no head or neck injury. Will give lactated Ringer's 1 L IV, obtain labs and continue to monitor. Side rails padded. 2039 patient verbal at this time, answer simple questions. Spoke to Dr. Ho, agreed to start Keppra. Will give 500 mg IV. Heart rate down to 80-90, initially 120s. Denies drinking ETOH this week. 2099 patient answering all questions, alert and oriented to person and place. Stated the year was 2018. Unable to get the month. Spoke to patient's mother, he is staying in the dorms at [employer]. She is not comfortable with him alone. Agreed with plan to admit overnight, she will come get him tomorrow and take him home to [place]. Keppra Rx sent to [facility] in [place], [place]. Spoke to Dr. Velazquez, agreed to admit patient to observation. 2129 Labs all essentially normal. Patient continues to be more verbal and answers all questions appropriately. No requests at this time, agreeable to admission. 2199 Patient more alert, answers year and month correctly, no further seizure activity, pulse 70-80. Call mother 07/28/19 with plan for discharge: Rigo (lives in [place]) [phone] Initial ECG Impression Date: Jul 27, 2019 Initial ECG Impression Time: 20:16 Initial ECG Rate: 126 Initial ECG Rhythm: Normal Sinus Initial ECG Intervals: Normal Initial ECG Intervals AZ 156, QRSD 106, QT 304, QTc 441. Lincoln P 79, QRS 165, T11. Initial ECG Impression: Normal Initial ECG Comparisson: Unchanged Departure Impression Primary Impression: Seizure Disposition: ADMITTED INPATIENT Condition: Stable Admissions Decision to Admit Reason: Admit from ER (General) Decision to Admit/Date: Jul 27, 2019 Time/Decision to Admit Time: 21:00 Departure-Patient Inst. Referrals: NO,LOCAL PHYSICIAN (PCP/Family) Primary Care Physician Scripts Levetiracetam (Keppra) 500 Mg Tablet 500 MG PO BID, #60 TAB 0 Refills Prov: DELORIS PEÑA 07/27/19 Copy Copies To 1: MARZENA HO MD, AMY ARNP Jul 27, 2019 20:22
[2019-07-27 20:32] LABS: BASOPHILS % (AUTO) 0 % (0-10); EOSINOPHILS # (AUTO) 0.1 10^3/uL (0.0-0.3); EOSINOPHILS % (AUTO) 0 % (0-10); HEMATOCRIT 45 % (40-54); LYMPHOCYTES # (AUTO) 4.1 X 10^3 (1.0-4.0); LYMPHOCYTES % (AUTO) 23 % (12-44); MEAN CORPUSCULAR HEMOGLOBIN 31 PG (25-34); MEAN CORPUSCULAR HGB CONC 36 G/DL (32-36); MEAN CORPUSCULAR VOLUME 87 FL (80-99); MONOCYTES # (AUTO) 1.5 X 10^3 (0.0-1.0); MONOCYTES % (AUTO) 8 % (0-12); NEUTROPHILS % (AUTO) 68 % (42-75); PLATELET COUNT 321 10^3/uL (130-400); RED CELL DISTRIBUTION WIDTH 13.3 % (10.0-14.5); WHITE BLOOD COUNT 17.7 10^3/uL (4.3-11.0)
[2019-07-27 20:36] LABS: BILIRUBIN,URINE NEGATIVE (NEGATIVE); CLARITY,URINE CLEAR; COLOR,URINE YELLOW; GLUCOSE, URINE (UA) NEGATIVE (NEGATIVE); KETONES,URINE TRACE (NEGATIVE); LEUKOCYTE ESTERASE ,URINE NEGATIVE (NEGATIVE); NITRITE,URINE NEGATIVE (NEGATIVE); PH,URINE 5.5 (5-9); PROTEIN,URINE 1+ (NEGATIVE)
[2019-07-27 20:45] LABS: INR 1.1 (0.8-1.4); PROTHROMBIN TIME PATIENT 14.3 SEC (12.2-14.7)
[2019-07-27 20:45] LABS: BACTERIA,URINE NEGATIVE /HPF; RBC,URINE RARE /HPF; SQUAMOUS EPITHELIAL CELL,UR 0-2 /HPF
[2019-07-27] MEDS ORDERED: LEVETIRACETAM INJECTION 500 MG in NS (IVPB) 50 ML IV ONE (20:45)
[2019-07-27 20:50] LABS: AMPHETAMINE SCREEN, URINE NEGATIVE (NEGATIVE); BARBITURATE SCREEN URINE NEGATIVE (NEGATIVE); BENZODIAZEPINES SCREEN URINE NEGATIVE (NEGATIVE); CANNABINOID SCREEN, URINE NEGATIVE (NEGATIVE); COCAINE SCREEN URINE NEGATIVE (NEGATIVE); METHADONE STAT NEGATIVE (NEGATIVE); METHAMPHETAMINE SCREEN URINE S NEGATIVE (NEGATIVE); OPIATE SCREEN URINE NEGATIVE (NEGATIVE); OXYCODONE STAT NEGATIVE (NEGATIVE); PROPOXYPHENE STAT NEGATIVE (NEGATIVE); TRICYCLIC ANTIDEPRESSANTS SCRE NEGATIVE (NEGATIVE)
[2019-07-27 20:54] LABS: ACETAMINOPHEN < 10 UG/ML (10-30); ALANINE AMINOTRANSFERASE 21 U/L (0-55); ALBUMIN 5.5 GM/DL (3.2-4.5); ALKALINE PHOSPHATASE 102 U/L (40-136); BILIRUBIN,TOTAL 0.7 MG/DL (0.1-1.0); BUN/CREATININE RATIO 10; CALCIUM 9.9 MG/DL (8.5-10.1); CARBON DIOXIDE 13 MMOL/L (21-32); CHLORIDE 102 MMOL/L (98-107); CREATINE KINASE 246 U/L (30-200); CREATININE SERUM 1.13 MG/DL (0.60-1.30); GFR ESTIMATED > 60; GLUCOSE 137 MG/DL (70-105); MAGNESIUM 2.1 MG/DL (1.6-2.4); POTASSIUM 3.7 MMOL/L (3.6-5.0); SALICYLATE < 5.0 MG/DL (5.0-20.0); SODIUM 140 MMOL/L (135-145); TOTAL PROTEIN 8.5 GM/DL (6.4-8.2)
[2019-07-27 20:59] LABS: NEUTROPHILS % (MANUAL) 65 %
[2019-07-27 21:00] LABS: BASOPHILS % (MANUAL) 1 %; LYMPHOCYTES % (MANUAL) 26 %; MONOCYTES % (MANUAL) 8 %; RBC MORPH NORMAL
--- NOTE | 2019-07-27 21:12 | NUR ---
PT RESPONDING TO MINIMAL QUESTIONS AND REPLIES WITH "THANK YOU" ETC AFTER DISCUSSING PLAN OF CARE.
[2019-07-27 21:14] LABS: CREATINE KINASE MB 2.2 NG/ML (<6.6); TSH (THYROID ANALYZER) 2.11 UIU/ML (0.35-4.94)
[2019-07-27] MEDS ORDERED: LEVE500T99 PO (21:15)
--- NOTE | 2019-07-27 21:35 | NUR ---
AFTER PT APPROVAL HIS FRIEND WAITING OUTSIDE WAS NOTIFIED THAT PT WOULD BE ADMITTED. FRIEND ASKED IF PATIENT'S WALLET WAS WITH PT. NO WALLET NOTED WHEN PT ARRIVED, PT GIVEN CLOTHES TO LOOK FOR WALLET AND WAS NOT PRESENT. FRIEND NOTIFIED.
--- NOTE | 2019-07-27 23:44 | NUR ---
ANNABEL BARTON admitted to room 408-1, with an admitting diagnosis of SEIZURE, on 07/27/19 from ED via , accompanied by ED STAFF MEMBER.ANNABEL BARTON introduced to surroundings, call light, bed controls, phone, TV, temperature control, lights, meal times, smoking policy, visitor policy, side rail policy, bathrooms and showers. Patient Rights given to patient in the handbook.ANNABEL BARTON verbalizes understanding that [facility] is not responsible for the loss or damage to any personal effects or valuables that are kept in the patients posession during their hospitalization. The following Patient Care Plans were discussed with the PATIENT: Discharge Planning, and SEIZURE. ANNABEL BARTON verbalizes understanding of Interdisciplinary Patient Education. Patient and/or family were informed about the Rapid Response Team and its purpose.
[2019-07-27 23:49] VITALS: BP 117/66
[2019-07-28 00:21] VITALS: BP 117/66
--- NOTE | 2019-07-28 00:25 | NUR ---
DURING ASSESSMENT PATIENT STATED IN HIGH SCHOOL HE HAD SUICIDAL THOUGHTS/DRUG USE. HAS SINCE LEFT THAT CR[place] AND NO LONGER THINKS OF SELF HARM
[2019-07-28] MEDS ORDERED: NS IV 1000 ML 1,000 ML ONE (00:29)
[2019-07-28] MEDS ORDERED: ACETAMINOPHEN 325 MG TABLET PO PRN (00:45)
[2019-07-28] MEDS ORDERED: NS IV 1000 ML 1,000 ML IV SCH (00:45)
[2019-07-28] MEDS ORDERED: ONDANSETRON 4 MG/2 ML (SDV) Z0FRAN IV PRN (00:45)
[2019-07-28] MEDS ORDERED: IBUPROFEN 600 MG (MOTRIN) TAB PO PRN (00:45)
[2019-07-28 04:15] VITALS: BP 98/59
[2019-07-28 05:03] LABS: BASOPHILS # (AUTO) 0.1 10^3/uL (0.0-0.1); BASOPHILS % (AUTO) 1 % (0-10); EOSINOPHILS # (AUTO) 0.2 10^3/uL (0.0-0.3); EOSINOPHILS % (AUTO) 2 % (0-10); HEMATOCRIT 36 % (40-54); HEMOGLOBIN 12.9 G/DL (13.3-17.7); LYMPHOCYTES # (AUTO) 2.6 X 10^3 (1.0-4.0); LYMPHOCYTES % (AUTO) 25 % (12-44); MEAN CORPUSCULAR HEMOGLOBIN 31 PG (25-34); MEAN CORPUSCULAR HGB CONC 36 G/DL (32-36); MEAN CORPUSCULAR VOLUME 86 FL (80-99); MEAN PLATELET VOLUME 9.8 FL (7.4-10.4); MONOCYTES # (AUTO) 1.1 X 10^3 (0.0-1.0); MONOCYTES % (AUTO) 11 % (0-12); NEUTROPHILS # (AUTO) 6.5 X 10^3 (1.8-7.8); NEUTROPHILS % (AUTO) 62 % (42-75); PLATELET COUNT 228 10^3/uL (130-400); RED CELL DISTRIBUTION WIDTH 13.1 % (10.0-14.5); WHITE BLOOD COUNT 10.4 10^3/uL (4.3-11.0)
[2019-07-28 05:25] LABS: ALANINE AMINOTRANSFERASE 17 U/L (0-55); ALBUMIN 4.1 GM/DL (3.2-4.5); ALKALINE PHOSPHATASE 75 U/L (40-136); BILIRUBIN,TOTAL 0.5 MG/DL (0.1-1.0); BUN/CREATININE RATIO 9; CALCIUM 8.9 MG/DL (8.5-10.1); CARBON DIOXIDE 25 MMOL/L (21-32); CHLORIDE 105 MMOL/L (98-107); CREATININE SERUM 0.87 MG/DL (0.60-1.30); GFR ESTIMATED > 60; GLUCOSE 81 MG/DL (70-105); POTASSIUM 3.7 MMOL/L (3.6-5.0); SODIUM 141 MMOL/L (135-145); TOTAL PROTEIN 6.2 GM/DL (6.4-8.2)
[2019-07-28 08:00] VITALS: BP 102/63
--- NOTE | 2019-07-28 08:30 | NUR ---
Patient provided with medication education on Keppra. Discussed side effects, interactions, and dose with patient. Patient also provided printed information. Patient verbalized understanding of medication teaching.
[2019-07-28] MEDS ORDERED: LEVETIRACETAM 500 MG (KEPPRA) TAB PO SCH (09:00)
[2019-07-28] MEDS ORDERED: LEVE500T99 PO (09:28)
--- NOTE | 2019-07-28 09:33 | Discharge Inst-Simple/Standard ---
Discharge Inst-Standard Discharge Medications New, Converted or Re-Newed RX: Transmitted to Pharmacy Patient Instructions/Follow Up Plan of Care/Instructions/FU: Please continue to take your medications as written. Please follow up with Dr Tomas and Dr Villagran as scheduled. DO NOT DRIVE FOR AT LEAST 6 MONTHS. Activity as Tolerated: Yes Discharge Diet: No Restrictions Return to The Hospital For: Fever, chest pain, shortness of breath, seizure, if you feel you are getting worse. MEHNAZ ACKERMAN MD Jul 28, 2019 09:33
--- NOTE | 2019-07-28 09:37 | Short Stay Summary-Hospitalist ---
History of Present Illness HPI/Chief Complaint Pt is a 23yoCM who presented to the ER due to seizure. He states he does not remember what exactly happened and that he went to a friend's house for dinner but woke up here at the hospital. He states he has been told that he had a seizure. He had his first seizure on 07/11 of this month and was admitted for observation then. He was discharged home without antiepileptics as that time given first onset seizure. Per ER notes his friend witnessed the event. He convulsed for roughly 30 seconds and EMS was called by the friend. This morning he reports that he is feeling well but his arm is a little sore. He has no other complaints and had no further seizures overnight. Source: patient Date Seen 07/28/19 Time Seen by a Provider: 09:00 Attending Physician Mya Tomas MD PCP No,Local Physician Referring Physician Date of Admission Jul 27, 2019 at 21:15 Home Medications & Allergies Home Medications Reviewed patient Home Medication Reconciliation performed by pharmacy medication reconciliations generation technician and/or nursing. Patients Allergies have been reviewed. Allergies Allergies Coded Allergies No Allergy Information Available (Unverified07/12/19) Past Wpcogbf-Omqobs-Pievys Hx Past Med/Social Hx: Reviewed Nursing Past Med/Soc Hx Patient Social History Marrital Status: single Employed/Student: student, full-time Alcohol Use: Denies Use Smoking Status: Current Someday Smoker Type Used: Cigars Recent Foreign Travel: No Contact w/other who traveled: No Recent Hopitalizations: Yes (ADMIT 07/12/19) Recent Infectious Disease Expo: No Immunizations Up To Date Tetanus Booster (TDap): Unknown Pediatric: Yes Date of Influenza Vaccine: Feb 25, 2019 Seasonal Allergies Seasonal Allergies: Yes Past Medical History Respiratory: Asthma Neurological: Seizure Disorder History of Blood Disorders: No Review of Systems Constitutional: see HPI Musculoskeletal: muscle stiffness Psychiatric/Neurological: Seizure All Other Systems Reviewed Negative Unless Noted: Yes (Negative excepted noted.) Physical Exam Physical Exam Vital Signs Vital Signs - First Documented 07/27/19 07/27/19 20:13 22:55 Temp 37.0 Pulse 110 Resp 18 B/P (MAP) 148/85 (106) Pulse Ox 100 O2 Delivery Room Air Capillary Refill : Less Than 3 Seconds Height, Weight, BMI Height: '" Weight: lbs. oz. kg; 21.76 BMI Method: General Appearance: No Apparent Distress, WD/WN HEENT: PERRL/EOMI, Moist Mucous Membranes; No Scleral Icterus (L), No Scleral Icterus (R) Respiratory: Lungs Clear, No Accessory Muscle Use, No Respiratory Distress Cardiovascular: Regular Rate, Rhythm, No Murmur Gastrointestinal: Normal Bowel Sounds, Non Tender, Soft Extremity: Normal Capillary Refill, No Calf Tenderness, No Pedal Edema Neurologic/Psychiatric: Alert, Oriented x3, Normal Mood/Affect Skin: Normal Color, Warm/Dry Results Results/Procedures Labs Laboratory Tests 07/28/19 04:35 Patient resulted labs reviewed. Short Stay Diagnosis Discharge Diagnosis-Short Stay Admission Diagnosis Seizure Final Discharge Diagnosis Seizure Conclusion Plan Seizure Continue on keppra Will send to [facility] here per patient request Advised no driving for at least 6 months Will discharge home given no further seizures Clinical Quality Measures DVT/VTE Risk/Contraindication: Risk Factor Score Per Nursin RFS Level Per Nursing on Admit: 1=Low/No VTE PPX MEHNAZ ACKERMAN MD Jul 28, 2019 09:37
== END 2019-07-28 09:37 | disposition home or self-care (01) ==
LOC: EDUNIT# 20:13 → ER 20:14 → 4TH 21:15 → UNDOADMOB 21:15 → 4TH 23:23 → UNDODISOB 07-28 10:20
PROVIDERS: ADMIT Internal Medicine; ATTEND Internal Medicine
DX: G40.409 Other generalized epilepsy and epileptic syndromes, not intractable, without status epilepticus (principal); F17.290 Nicotine dependence, other tobacco product, uncomplicated; J45.909 Unspecified asthma, uncomplicated
CPT/HCPCS: 36415; 51701; 80053; 80306; 80320; 80329; 81000; 82550; 82553; 82962; 83735; 83874; 84443; 85007; 85025; 85027; 85610; 85730; 93005; 93041; G0378

== ENCOUNTER 2020-05-21 14:37 | Emergency (ER) | payer BC ==
[~2020-05-21] VITALS: Ht 182 cm; Wt 68.0 kg
[~2020-05-21 14:37] MED LIST changes: -CETI10TA21 PO; +CETI10TA49 PO; +LEVE500T99 PO
[2020-05-21] MEDS ORDERED: NS IV 1000 ML 1,000 ML IV SCH (14:45)
--- NOTE | 2020-05-21 14:46 | ED General ---
General Stated Complaint: SEIZURES Source of Information: Patient, EMS Exam Limitations: No Limitations History of Present Illness Date Seen by Provider: May 21, 2020 Time Seen by Provider: 14:43 Initial Comments By EMS from home with reports of a second seizure today. EMS was called after the first seizure but patient's mother was on scene and refused transport as he was known to have a seizure disorder and is on Keppra. Scheduled to see neurology in [place] in June. Timing/Duration: 1-2 Days Severity: Moderate Allergies and Home Medications Allergies Coded Allergies: No Allergy Information Available (Unverified , 07/12/19) Home Medications Acetaminophen 325 Mg Tablet, 650 MG PO Q8H PRN for PAIN-MILD (1-4), (Reported) Cetirizine HCl 10 Mg Tablet, 10 MG PO DAILY PRN for ALLERGY SYMPTOMS, (Reported) Levetiracetam 500 Mg Tablet, 500 MG PO BID Prescribed by: MEHNAZ ACKERMAN on 07/28/19 0977 Patient Home Medication List Home Medication List Reviewed: Yes Review of Systems Review of Systems Constitutional: see HPI EENTM: see HPI Respiratory: no symptoms reported Cardiovascular: no symptoms reported Genitourinary: no symptoms reported Musculoskeletal: no symptoms reported Skin: no symptoms reported Psychiatric/Neurological: See HPI, Seizure Hematologic/Lymphatic: No Symptoms Reported Immunological/Allergic: no symptoms reported Past Zbiytrf-Abchhp-Hfklal Hx Patient Social History Type Used: Cigars Recent Hopitalizations: Yes (ADMIT 07/12/19) Immunizations Up To Date Tetanus Booster (TDap): Unknown PED Vaccines UTD: Yes Date of Influenza Vaccine: Feb 25, 2019 Seasonal Allergies Seasonal Allergies: Yes Past Medical History Surgeries: No Respiratory: No Cardiac: No Neurological: Yes (SEIZURE LIKE ACTIVITY AT ADMIT 07/12/2019) Seizure Disorder Genitourinary: No Gastrointestinal: No Musculoskeletal: No Endocrine: No HEENT: No Cancer: No Psychosocial: No Integumentary: No Blood Disorders: No Physical Exam Vital Signs Vital Signs - First Documented 05/21/20 14:48 Temp 36.8 Pulse 95 Resp 17 B/P (MAP) 123/62 (82) O2 Delivery Room Air Capillary Refill : Height, Weight, BMI Height: '" Weight: lbs. oz. kg; 21.76 BMI Method: General Appearance: No Apparent Distress, WD/WN Eyes: Bilateral Eye Normal Inspection, Bilateral Eye PERRL, Bilateral Eye EOMI Neck: Full Range of Motion, Normal Inspection Respiratory: Normal Breath Sounds, No Accessory Muscle Use, No Respiratory Distress Cardiovascular: Normal Peripheral Pulses, Tachycardia Gastrointestinal: Normal Bowel Sounds, Non Tender, Soft Extremity: Normal Capillary Refill, Normal Inspection Neurologic/Psychiatric: Alert, Oriented x3 Skin: Normal Color, Warm/Dry Progress/Results/Core Measures Suspected Sepsis SIRS Temperature: Pulse: Respiratory Rate: Laboratory Tests 05/21/20 14:43: White Blood Count 9.0 Blood Pressure / Mean: Laboratory Tests 05/21/20 14:43: Creatinine 1.03, Platelet Count 239, Total Bilirubin 0.4 Results/Orders Lab Results Laboratory Tests Test 05/21/20 14:43 Range/Units White Blood Count 9.0 4.3-11.0 10^3/uL Red Blood Count 4.78 4.30-5.52 10^6/uL Hemoglobin 15.1 13.3-17.7 g/dL Hematocrit 43 40-54 % Mean Corpuscular Volume 90 80-99 fL Mean Corpuscular Hemoglobin 32 25-34 pg Mean Corpuscular Hemoglobin Concent 35 32-36 g/dL Red Cell Distribution Width 12.5 10.0-14.5 % Platelet Count 239 130-400 10^3/uL Mean Platelet Volume 9.8 9.0-12.2 fL Immature Granulocyte % (Auto) 1 % Neutrophils (%) (Auto) 67 42-75 % Lymphocytes (%) (Auto) 24 12-44 % Monocytes (%) (Auto) 7 0-12 % Eosinophils (%) (Auto) 1 0-10 % Basophils (%) (Auto) 1 0-10 % Neutrophils # (Auto) 6.1 1.8-7.8 10^3/uL Lymphocytes # (Auto) 2.1 1.0-4.0 10^3/uL Monocytes # (Auto) 0.6 0.0-1.0 10^3/uL Eosinophils # (Auto) 0.1 0.0-0.3 10^3/uL Basophils # (Auto) 0.1 0.0-0.1 10^3/uL Immature Granulocyte # (Auto) 0.1 0.0-0.1 10^3/uL Sodium Level 141 135-145 MMOL/L Potassium Level 4.3 3.6-5.0 MMOL/L Chloride Level 107 98-107 MMOL/L Carbon Dioxide Level 20 L 21-32 MMOL/L Anion Gap 14 5-14 MMOL/L Blood Urea Nitrogen 11 7-18 MG/DL Creatinine 1.03 0.60-1.30 MG/DL Estimat Glomerular Filtration Rate > 60 BUN/Creatinine Ratio 11 Glucose Level 135 H 70-105 MG/DL Calcium Level 9.2 8.5-10.1 MG/DL Corrected Calcium 8.5-10.1 MG/DL Total Bilirubin 0.4 0.1-1.0 MG/DL Aspartate Amino Transf (AST/SGOT) 32 5-34 U/L Alanine Aminotransferase (ALT/SGPT) 67 H 0-55 U/L Alkaline Phosphatase 81 40-136 U/L Total Protein 7.6 6.4-8.2 GM/DL Albumin 4.9 H 3.2-4.5 GM/DL Procalcitonin 0.01 <0.10 NG/ML My Orders Orders - BILL RYAN APRN Chest 1 View, Ap/Pa Only (05/21/20 14:40) Cbc With Automated Diff (05/21/20 14:40) Procalcitonin (Pct) (05/21/20 14:40) Comprehensive Metabolic Panel (05/21/20 14:40) Ua Culture If Indicated (05/21/20 14:40) Ns Iv 1000 Ml (Sodium Chloride 0.9%) (05/21/20 14:45) Ct Head Wo (05/21/20 15:07) Lorazepam Injection (Ativan Injection) (05/21/20 15:45) Medications Given in ED Current Medications Medications Dose Ordered Sig/Dunia Route Start Time Stop Time Status Last Admin Dose Admin Lorazepam 0.5 mg ONCE PRN IM 05/21/20 15:45 05/21/20 15:36 0.5 MG Vital Signs/I&O 05/21/20 14:48 Temp 36.8 Pulse 95 Resp 17 B/P (MAP) 123/62 (82) O2 Delivery Room Air Capillary Refill : Departure Communication (Admissions) Spoke with mother, patient has a neurologist appointment June 06 in [place]. She is out in the parking lot here to pick him up. Do not see any sign of infection. He is back to normal now knows where he is at and feels better. He is on Keppra 500 mg 3 times a day. Mother states they tried to go up to 2000 mg a day but he began breaking out in a rash so she would rather not increase the dose and this is certainly reasonable. He follows with Dr. Ho at [facility]. Impression Primary Impression: Seizure disorder Disposition: HOME, SELF-CARE Condition: Stable Departure-Patient Inst. Decision time for Depature: 16:04 Referrals: NO,LOCAL PHYSICIAN (PCP/Family) Primary Care Physician Patient Instructions: Seizures, Adult (DC) Add. Discharge Instructions: 1. Continue current medications. Return to ER for any concerns. Keep your appointment with neurology. Again, no driving for 6 months after your last seizure which would be today. Copy Copies To 1: MARZENA HO MD, PETER J APRN May 21, 2020 14:45
[2020-05-21 14:48] VITALS: BP 123/62
[2020-05-21 14:50] LABS: BASOPHILS # (AUTO) 0.1 10^3/uL (0.0-0.1); BASOPHILS % (AUTO) 1 % (0-10); EOSINOPHILS # (AUTO) 0.1 10^3/uL (0.0-0.3); EOSINOPHILS % (AUTO) 1 % (0-10); HEMATOCRIT 43 % (40-54); HEMOGLOBIN 15.1 g/dL (13.3-17.7); LYMPHOCYTES # (AUTO) 2.1 10^3/uL (1.0-4.0); LYMPHOCYTES % (AUTO) 24 % (12-44); MEAN CORPUSCULAR HEMOGLOBIN 32 pg (25-34); MEAN CORPUSCULAR HGB CONC 35 g/dL (32-36); MEAN CORPUSCULAR VOLUME 90 fL (80-99); MEAN PLATELET VOLUME 9.8 fL (9.0-12.2); MONOCYTES # (AUTO) 0.6 10^3/uL (0.0-1.0); MONOCYTES % (AUTO) 7 % (0-12); NEUTROPHILS # (AUTO) 6.1 10^3/uL (1.8-7.8); NEUTROPHILS % (AUTO) 67 % (42-75); PLATELET COUNT 239 10^3/uL (130-400)
[2020-05-21 15:14] LABS: ALBUMIN 4.9 GM/DL (3.2-4.5); CHLORIDE 107 MMOL/L (98-107); POTASSIUM 4.3 MMOL/L (3.6-5.0); SODIUM 141 MMOL/L (135-145)
[2020-05-21 15:15] LABS: CALCIUM 9.2 MG/DL (8.5-10.1)
[2020-05-21 15:16] LABS: GLUCOSE 135 MG/DL (70-105)
[2020-05-21 15:17] LABS: TOTAL PROTEIN 7.6 GM/DL (6.4-8.2)
[2020-05-21 15:18] LABS: BILIRUBIN,TOTAL 0.4 MG/DL (0.1-1.0); CARBON DIOXIDE 20 MMOL/L (21-32)
[2020-05-21 15:20] LABS: ALKALINE PHOSPHATASE 81 U/L (40-136); CREATININE SERUM 1.03 MG/DL (0.60-1.30); GFR ESTIMATED > 60
[2020-05-21 15:21] LABS: BUN/CREATININE RATIO 11
[2020-05-21 15:23] LABS: ALANINE AMINOTRANSFERASE 67 U/L (0-55)
--- NOTE | 2020-05-21 15:25 | Diagnostic Imaging Report ---
INDICATION: Seizure. TIME OF EXAM: 03:15 p.m. COMPARISON: No prior studies are available for comparison. The heart size is normal. The pulmonary vascularity is unremarkable. The lungs are clear. No infiltrate, effusion or pneumothorax is detected. IMPRESSION: No acute cardiopulmonary process is detected. Dictated by: Dictated on workstation # [id number]
[2020-05-21] MEDS ORDERED: LORazepam INJ 2 MG/ML (ATIVAN) VIAL IM PRN (15:45)
--- NOTE | 2020-05-21 15:47 | Diagnostic Imaging Report ---
PROCEDURE: CT head without contrast. TECHNIQUE: Multiple contiguous axial images were obtained through the brain without the use of intravenous contrast. Auto Exposure Controls were utilized during the CT exam to meet ALARA standards for radiation dose reduction. INDICATION: Seizures. COMPARISON: CT head without contrast 07/12/2019. FINDINGS: No intracranial hemorrhage, mass effect, hydrocephalus or extra-axial fluid collections. No CT evidence of territorial infarction. Osseous structures are intact. Visualized paranasal sinuses and mastoids are clear. IMPRESSION: Negative head CT. Dictated by: Dictated on workstation # [id number]
== END 2020-05-21 16:07 | disposition home or self-care (01) ==
LOC: EDUNIT# 14:37 → ER 14:39
DX: G40.909 Epilepsy, unspecified, not intractable, without status epilepticus (principal)
CPT/HCPCS: 36415; 70450; 71045; 80053; 84145; 85025; 93005

== ENCOUNTER 2020-07-21 13:49 | Emergency (ER) | payer BC ==
[~2020-07-21] VITALS: Ht 182 cm; Wt 73.0 kg
[2020-07-21] MEDS ORDERED: LEVETIRACETAM INJECTION 1,000 MG in NS (IVPB) 100 ML IV STA (14:14)
[2020-07-21] MEDS ORDERED: TETANUS,DIPTH,PERTUSS P/F (BOOSTRIX) 0.5 ML VIAL IM ONE (14:15)
[2020-07-21] MEDS ORDERED: L.E.T. SOLUTION 3 ML SYR TOP ONE (14:30)
--- NOTE | 2020-07-21 14:30 | ED EENT ---
History of Present Illness General Chief Complaint: Neurological Problems Stated Complaint: SEIZURE Nursing Triage Note: pt presents to ed via ems from scene with complaints of pt falling while walking and hitting face on the concrete and having aprox 1 min seizure. Source: patient Exam Limitations: no limitations History of Present Illness Date Seen by Provider: Jul 21, 2020 Time Seen by Provider: 14:00 Initial Comments Patient is a 24-year-old male who presents to the emergency department today with a chief complaint of seizure as well as facial trauma related to the seizure. Patient was brought into the emergency department by EMS after witnessed tonic-clonic, approximately 1 minute in length, generalized seizure. Patient has a known seizure disorder and is followed by a neurologist in [facility]. Patient is on Keppra and Topamax. He states that he has been out of his medications for an unknown length of time but it has only been a few days at most possibly just 3. This is patient's 4 or fifth seizure. Patient denies any other injuries other than some abrasions to his right hand. He has a little cervical myalgia as well. No midline bony tenderness. He did arrive in a c- collar which was cleared clinically. Patient is still slightly post ictal with poor memory of the events of the day. He does not recall whether or not he drank any alcohol last night or the details of when he last took his antiseizure medications. He cannot recall the name of his neurologist. His mother is present at the bedside for further history. No recent illnesses. All other review of systems reviewed and negative except as stated. Timing/Duration: abrupt Severity: moderate Location: nose, mouth Prearrival Treatment: no prearrival treatment Associated Symptoms: other (Mild headache) Allergies and Home Medications Allergies Coded Allergies: No Allergy Information Available (Unverified , 07/12/19) Home Medications Acetaminophen 325 Mg Tablet, 650 MG PO Q8H PRN for PAIN-MILD (1-4), (Reported) Cetirizine HCl 10 Mg Tablet, 10 MG PO DAILY PRN for ALLERGY SYMPTOMS, (Reported) Levetiracetam 500 Mg Tablet, 500 MG PO BID Prescribed by: MEHNAZ ACKERMAN on 07/28/19 0962 Patient Home Medication List Home Medication List Reviewed: Yes Review of Systems Review of Systems Constitutional: see HPI Eyes: No Symptoms Reported Ears: No Symptoms Reported Nose: other (Abrasions) Mouth: other (2.5 cm avulsion at the left infra nasolabial space) Throat: no symptoms reported Respiratory: no symptoms reported Cardiovascular: no symptoms reported Gastrointestinal: no symptoms reported Skin: other (abrasion face and right hand) Neurological: Seizure Hematologic/Lymphatic: No Symptoms Reported All Other Systems Reviewed Negative Unless Noted: Yes Past Hcvxajq-Rdyevo-Cnfkbe Hx Patient Social History Alcohol Use: Occasionally Uses Drug of Choice: POT Smoking Status: Current Someday Smoker Type Used: Cigars 2nd Hand Smoke Exposure: Yes Recent Infectious Disease Expo: No Recent Hopitalizations: Yes (ADMIT 07/12/19) Immunizations Up To Date Tetanus Booster (TDap): Unknown PED Vaccines UTD: Yes Date of Influenza Vaccine: Feb 25, 2019 Seasonal Allergies Seasonal Allergies: Yes Past Medical History Surgeries: No Respiratory: No Cardiac: No Neurological: Yes (SEIZURE LIKE ACTIVITY AT ADMIT 07/12/2019) Seizure Disorder Genitourinary: No Gastrointestinal: No Musculoskeletal: No Endocrine: No HEENT: No Cancer: No Psychosocial: No Integumentary: No Blood Disorders: No Physical Exam Vital Signs Vital Signs - First Documented 07/21/20 14:00 Temp 36.9 Pulse 111 Resp 16 B/P (MAP) 144/93 (110) Pulse Ox 97 Height, Weight, BMI Height: '" Weight: lbs. oz. kg; 22.00 BMI Method: General Appearance: WD/WN, no apparent distress Eyes: bilateral eye normal inspection, bilateral eye PERRL, bilateral eye EOMI Ears: bilateral ear auricle normal, bilateral ear canal normal, bilateral ear TM normal Nose: other (abrsaions over the nasal bridge/forehead; 2.5cm island nasolabial avulsion just left of midline; no active bleeding) Neck: supple, other (mild paraspinous miuscle tenderness C4,5,6, 7) Cardiovascular: regular rate, rhythm Respiratory: lungs clear, normal breath sounds, no respiratory distress, no accessory muscle use Gastrointestinal: non tender, soft 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, no motor/sensory deficits, alert, normal mood/affect, oriented x 3 Skin: normal color, warm/dry Procedures/Interventions Wound Location: Nose Other Wound Location inferior nasolabial areal to the left of midline Wound Length (cm): 2.5 Wound's Depth, Shape: superficial, irregular Wound Explored: clean Irrigated w/ Saline (ccs): 250 Wound Debrided: minimal Suture: Ethlion Suture Size: 6-0 Number of Sutures: 4 Layer Closure?: 1 Progress LET placed to avulsed tissue instead of plain lidocaine Progress/Results/Core Measures Results/Orders Lab Results Laboratory Tests Test 07/21/20 14:00 Range/Units Sodium Level 142 135-145 MMOL/L Potassium Level 4.0 3.6-5.0 MMOL/L Chloride Level 109 H 98-107 MMOL/L Carbon Dioxide Level 19 L 21-32 MMOL/L Anion Gap 14 5-14 MMOL/L Blood Urea Nitrogen 16 7-18 MG/DL Creatinine 0.86 0.60-1.30 MG/DL Estimat Glomerular Filtration Rate > 60 BUN/Creatinine Ratio 19 Glucose Level 80 70-105 MG/DL Calcium Level 8.8 8.5-10.1 MG/DL My Orders Orders - ROBERT DEAL MD Ed Iv/Invasive Line Start (07/21/20 14:14) Basic Metabolic Panel (07/21/20 14:14) Dipht,Pertuss(Acell),Tet Adult (Boostrix (07/21/20 14:15) Levetiracetam Injection (Keppra Injectio (07/21/20 14:14) Let Solution (Let Solution) (07/21/20 14:30) Ondansetron Injection (Zofran Injectio (07/21/20 15:00) Medications Given in ED Vital Signs/I&O 07/22/20 00:00 Intake Total 110 ml Balance 110 ml Blood Pressure Mean: 110 Progress Progress Note : Time: 15:28 Progress Note Patient did well throughout his stay here in the emergency department. He did require some medications for nausea at one point and was given 4 mg of Zofran. Patient had sutures to the avulsion at the left upper lip, X4. He tolerated the procedure well. Patient is counseled on suture removal in 5 to 7 days. He is also counseled no playing the trombone for about 2 weeks while this wound heals. He verbalizes understanding. I have also given him head injury precautions to which she also verbalizes understanding. His mother is at the bedside and also is in agreement with the plan of care. Departure Impression Primary Impression: Seizure disorder Additional Impressions: Laceration Closed head injury Disposition: HOME, SELF-CARE Condition: Stable Departure-Patient Inst. Decision time for Depature: 15:30 Referrals: MARZENA HO MD Patient Instructions: Laceration Repair With Stitches (DC), Concussion, Adult (DC) Add. Discharge Instructions: Continue taking your seizure medications as previously prescribed. Keep your wounds clean and dry. You may use a little Neosporin/ triple antibiotic ointment twice a day for 2-3 days. Gentle washing of the wound under your nose, no rubbing. Please call and follow up with your neurologist. No playing the trombone for 2 weeks while your laceration heals. Sutures will need to come out in 5-7 days. "Brain rest" for 24 hours, no excessive TV/Cellphone/reading. if severe headache, vomiting or vision change please come back to the Emergency Department for re-evaluation. Tylenol and/or ibuprofen as needed for mild headache/body ache. ROBERT DEAL MD Jul 21, 2020 14:30
[2020-07-21 14:31] LABS: BUN/CREATININE RATIO 19; CALCIUM 8.8 MG/DL (8.5-10.1); CARBON DIOXIDE 19 MMOL/L (21-32); CHLORIDE 109 MMOL/L (98-107); CREATININE SERUM 0.86 MG/DL (0.60-1.30); GFR ESTIMATED > 60; GLUCOSE 80 MG/DL (70-105); SODIUM 142 MMOL/L (135-145)
[2020-07-21] MEDS ORDERED: ONDANSETRON 4 MG/2 ML (SDV) Z0FRAN IVP ONE (15:00)
[2020-07-21 15:43] VITALS: BP 122/74
== END 2020-07-21 15:43 | disposition home or self-care (01) ==
LOC: EDUNIT# 13:49 → ER 13:51
DX: S09.90XA Unspecified injury of head, initial encounter (principal); S01.81XA Laceration without foreign body of other part of head, initial encounter; G40.409 Other generalized epilepsy and epileptic syndromes, not intractable, without status epilepticus; T42.6X6A Underdosing of other antiepileptic and sedative-hypnotic drugs, initial encounter; F17.290 Nicotine dependence, other tobacco product, uncomplicated; Z91.14 Patient's other noncompliance with medication regimen; Z23 Encounter for immunization; Z79.899 Other long term (current) drug therapy; W18.30XA Fall on same level, unspecified, initial encounter; W22.8XXA Striking against or struck by other objects, initial encounter
CPT/HCPCS: 36415; 80048; 90715; 99283

== ENCOUNTER 2020-07-26 16:32 | Emergency (ER) | payer BC ==
[~2020-07-26] VITALS: Ht 182 cm; Wt 86.0 kg
[2020-07-26 16:40] VITALS: BP 0/0
== END 2020-07-26 16:45 | disposition home or self-care (01) ==
LOC: EDUNIT# 16:32 → ER 16:34
DX: Z48.02 Encounter for removal of sutures (principal)

== ENCOUNTER 2021-03-13 09:33 | Emergency (ER) | payer BC, OTHER ==
[~2021-03-13] VITALS: Ht 185.4 cm; Wt 72.7 kg
--- NOTE | 2021-03-13 09:53 | ED Neurological Problem ---
General Chief Complaint: Neurological Problems Stated Complaint: SEIZURE Source: patient, EMS Exam Limitations: no limitations History of Present Illness Date Seen by Provider: Mar 13, 2021 Time Seen by Provider: 09:32 Initial Comments Patient is a 25-year-old male who presents to the emergency department with a reported seizure. EMS reports that they were told the patient was evidently aware he was about to have a seizure and lowered himself to the ground, had an episode that lasted about 5 minutes of generalized shaking, described as tonic- clonic in nature. Patient was very postictal on EMS arrival however has cleared significantly in route. Patient does appear to be confused as to the events of last night and this morning. He does not recall where he was when he had the seizure. He cannot recall if he slept well or not last night. Patient denies recent illnesses such as fevers, chills, cough or congestion. No GI or complaints. He maintains that he is compliant with his daily medications which include Keppra and he believes Topamax. He states that he has not missed any doses. He does smoke cigars but denies drug use or heavy alcohol use. He suspects that his seizure started after heavy alcohol use about 2 years ago. Patient does have a neurologist in [place]. He actually saw him yesterday for routine visit, no changes were made to his medication regimen. Patient states he believes its been at least 9 months since he had a seizure. Patient denies any trauma as a result of the seizure. States that he did not bite his tongue denies shoulder pain, denies any other extremity pain. He is not Covid vaccinated. All other review of systems reviewed and negative except as stated. Associated Symptoms: confusion Allergies and Home Medications Allergies Coded Allergies: No Allergy Information Available (Unverified , 07/12/19) Patient Home Medication List Home Medication List Reviewed: Yes Acetaminophen (Tylenol) 325 Mg Tablet, 650 MG PO Q8H PRN for PAIN-MILD (1-4), (Reported) Entered as Reported by: LACI BETTS on 07/13/19948 Cetirizine HCl (Zyrtec) 10 Mg Tablet, 10 MG PO DAILY PRN for ALLERGY SYMPTOMS, (Reported) Entered as Reported by: LACI BETTS on 07/13/19948 Levetiracetam (Keppra) 500 Mg Tablet, 500 MG PO BID Prescribed by: MEHNAZ ACKERMAN on 07/28/19 0928 Review of Systems Review of Systems Constitutional: see HPI Eyes: No Symptoms Reported Ears, Nose, Mouth, Throat: no symptoms reported Respiratory: no symptoms reported Cardiovascular: no symptoms reported Gastrointestinal: no symptoms reported Genitourinary: no symptoms reported Musculoskeletal: neck pain (muscle ache back of neck) Skin: no symptoms reported Psychiatric/Neurological: Other (seizure) All Other Systems Reviewed Negative Unless Noted: Yes Past Uhxtaoi-Kdguke-Hrbvnu Hx Immunizations Up To Date Tetanus Booster (TDap): Unknown PED Vaccines UTD: Yes Seasonal Allergies Seasonal Allergies: Yes Past Medical History Surgeries: No Respiratory: No Cardiac: No Neurological: Yes (SEIZURE LIKE ACTIVITY AT ADMIT 07/12/2019) Seizure Disorder Genitourinary: No Gastrointestinal: No Musculoskeletal: No Endocrine: No HEENT: No Cancer: No Psychosocial: No Integumentary: No Blood Disorders: No Physical Exam Vital Signs Vital Signs - First Documented 03/13/21 09:36 Temp 36.7 Pulse 110 Resp 18 B/P (MAP) 142/81 (101) Pulse Ox 96 O2 Delivery Room Air Capillary Refill : Height, Weight, BMI Height: '" Weight: lbs. oz. 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, no motor/sensory deficits, alert, normal mood/affect, oriented x 3, other (slightly confused as to the events of last night and this morning) Crainal Nerves: PERRL Motor/Sensory: no motor deficit, no sensory deficit Skin: normal color, warm/dry Procedures/Interventions Suture Size: 6-0 Progress/Results/Core Measures Results/Orders Lab Results Laboratory Tests Test 03/13/21 10:01 Range/Units Sodium Level 140 135-145 MMOL/L Potassium Level 4.1 3.6-5.0 MMOL/L Chloride Level 108 H 98-107 MMOL/L Carbon Dioxide Level 19 L 21-32 MMOL/L Anion Gap 13 5-14 MMOL/L Blood Urea Nitrogen 13 7-18 MG/DL Creatinine 1.07 0.60-1.30 MG/DL Estimat Glomerular Filtration Rate 86 BUN/Creatinine Ratio 12 Glucose Level 83 70-105 MG/DL Calcium Level 9.0 8.5-10.1 MG/DL My Orders Orders - ROBERT DEAL MD Basic Metabolic Panel (03/13/21 09:47) Ketorolac Injection (Toradol Injection) (03/13/21 11:00) Orphenadrine Inj (Ed Only) (Norflex Inje (03/13/21 11:00) Vital Signs/I&O 03/13/21 09:36 Temp 36.7 Pulse 110 Resp 18 B/P (MAP) 142/81 (101) Pulse Ox 96 O2 Delivery Room Air Progress Progress Note : Time: 10:55 Progress Note Patient has remained stable throughout his ED visit with no further seizure-like activity. I have counseled the patient on medication compliance. I have advised him to follow-up with his neurologist. I have advised him against driving for the next 6 months. He is complaining of a little headache and posterior neck pain. We will give him some Toradol and Norflex here in the emergency department. Recommended ibuprofen as needed for further musculoskeletal type pain. All questions were sought and answered. Departure Impression Primary Impression: Seizure Disposition: 01 HOME, SELF-CARE Condition: Stable Departure-Patient Inst. Decision time for Depature: 09:52 Referrals: NO,LOCAL PHYSICIAN (PCP/Family) Primary Care Physician Patient Instructions: Seizures, Adult ED Add. Discharge Instructions: Please follow-up with your seizure doctor in [place] and let them know that you had another seizure. Continue to take your daily prescribed medications as directed. Drink plenty of fluids to stay well-hydrated. If you develop any new, concerning or emergent complaints please come back to the emergency room for reevaluation. You should not drive for 6 months after the seizure again. Please follow-up with your seizure doctor for further direction regarding this. ROBERT DEAL MD Mar 13, 2021 09:53
[2021-03-13 10:20] LABS: POTASSIUM 4.1 MMOL/L (3.6-5.0)
[2021-03-13 10:26] LABS: CREATININE SERUM 1.07 MG/DL (0.60-1.30)
[2021-03-13] MEDS ORDERED: ORPHENADRINE 60 MG/2 ML (NORFLEX) AMP (ED ONLY) IM ONE (11:00)
[2021-03-13] MEDS ORDERED: KETOROLAC 30 MG/ML VIAL IVP ONE (11:00)
[2021-03-13 12:18] VITALS: BP 108/57
== END 2021-03-13 12:20 | disposition home or self-care (01) ==
LOC: EDUNIT# 09:33 → ER 09:34
DX: G40.909 Epilepsy, unspecified, not intractable, without status epilepticus (principal)
CPT/HCPCS: 36415; 80048; 99281

== ENCOUNTER 2022-07-10 11:18 | Emergency (ER) | payer OTHER ==
[~2022-07-10] VITALS: Ht 187 cm; Wt 76.2 kg
[2022-07-10] MEDS ORDERED: NS IV 1000 ML 1,000 ML IV STA (11:41)
[2022-07-10 11:49] LABS: BASOPHILS # (AUTO) 0.1 10^3/uL (0.0-0.1); BASOPHILS % (AUTO) 1 % (0-10); EOSINOPHILS # (AUTO) 0.1 10^3/uL (0.0-0.3); EOSINOPHILS % (AUTO) 2 % (0-10); HEMATOCRIT 42 % (40-54); HEMOGLOBIN 15.1 g/dL (13.3-17.7); LYMPHOCYTES # (AUTO) 1.6 10^3/uL (1.0-4.0); LYMPHOCYTES % (AUTO) 26 % (12-44); MEAN CORPUSCULAR HEMOGLOBIN 32 pg (25-34); MEAN CORPUSCULAR HGB CONC 36 g/dL (32-36); MEAN CORPUSCULAR VOLUME 88 fL (80-99); MEAN PLATELET VOLUME 9.7 fL (9.0-12.2); MONOCYTES # (AUTO) 0.5 10^3/uL (0.0-1.0); MONOCYTES % (AUTO) 8 % (0-12); NEUTROPHILS % (AUTO) 63 % (42-75); PLATELET COUNT 204 10^3/uL (130-400); WHITE BLOOD COUNT 6.2 10^3/uL (4.3-11.0)
[2022-07-10 11:50] LABS: ALBUMIN 4.5 GM/DL (3.2-4.5); CHLORIDE 114 MMOL/L (98-107); POTASSIUM 3.7 MMOL/L (3.6-5.0); SODIUM 142 MMOL/L (135-145)
--- NOTE | 2022-07-10 11:50 | ED Neurological Problem ---
General Chief Complaint: Neurological Problems Stated Complaint: SEIZURE Nursing Triage Note: PT PRESENTS TO ED VIA EMS AFTER HAVING WITNESSED 3-5MIN SEIZURE. PT HAS HX OF SEIZURES, USUALLY THAT OCCUR AFTER HE DRINKS. PT CLAIMS THAT HE DOESN'T DRINK OFTEN D/T SEIZURE ACTIVITY. PT ON KEPPRA. PT IN POST-ICTAL STATE. A&OX2 Source: patient Exam Limitations: no limitations History of Present Illness Date Seen by Provider: Jul 10, 2022 Time Seen by Provider: 11:48 Initial Comments Patient is a 26-year-old male with a history of seizures who presents the ED with friend at bedside for seizure this morning. This occurred 30 minutes before arrival. Patient was sitting at home started not to feel well then had a seizure. This lasted about 3 to 5 minutes with convulsions. Patient was postictal and was having difficulty breathing according to friends at bed side. On arrival patient is more alert and oriented according to friend. He reports a headache at this time. He states last night he did drink several alcohol beverages which tends to lead into seizures the next day after being hung over. He does take Keppra and Topamax daily for his seizures. Last seizure was a few years ago. Denies of any visual changes, unilateral muscle weakness or sensory changes, chest pain, cough, shortness of breath, vomiting. Denies of any drug use. Allergies and Home Medications Allergies Coded Allergies: No Known Drug Allergies (Unverified , 03/13/21) Patient Home Medication List Home Medication List Reviewed: Yes Acetaminophen (Tylenol) 325 Mg Tablet, 650 MG PO Q8H PRN for PAIN-MILD (1-4), (Reported) Entered as Reported by: LACI BETTS on 07/13/19948 Cetirizine HCl (Zyrtec) 10 Mg Tablet, 10 MG PO DAILY PRN for ALLERGY SYMPTOMS, (Reported) Entered as Reported by: LACI BETTS on 07/13/19948 Levetiracetam (Keppra) 500 Mg Tablet, 500 MG PO BID Prescribed by: MEHNAZ ACKERMAN on 07/28/19 09 Levetiracetam (Keppra) 500 Mg Tablet, 1,000 MG PO BID Prescribed by: ERA GREENE on 07/10/22 1081 Review of Systems Review of Systems Constitutional: No chills, No diaphoresis Eyes: Denies Drainage, Denies Decreased Acuity Ears, Nose, Mouth, Throat: denies ear pain Respiratory: No cough, No dyspnea on exertion, No orthopnea, No short of breath Cardiovascular: No chest pain, No edema Gastrointestinal: No abdominal pain, No diarrhea, No nausea, No vomiting Genitourinary: No decreased output, No discharge Musculoskeletal: No back pain Skin: No change in color, No change in hair/nails Psychiatric/Neurological: Other (seizure) All Other Systems Reviewed Negative Unless Noted: Yes Past Ysorpeb-Lfwwmp-Swkqca Hx Immunizations Up To Date Tetanus Booster (TDap): Unknown PED Vaccines UTD: Yes Seasonal Allergies Seasonal Allergies: Yes Past Medical History Surgeries: No Respiratory: No Cardiac: No Neurological: Yes (SEIZURE LIKE ACTIVITY AT ADMIT 07/12/2019) Seizure Disorder Genitourinary: No Gastrointestinal: No Musculoskeletal: No Endocrine: No HEENT: No Cancer: No Psychosocial: No Integumentary: No Blood Disorders: No Physical Exam Vital Signs Vital Signs - First Documented 07/10/22 11:20 Pulse 99 Resp 16 B/P (MAP) 119/81 (94) Pulse Ox 99 O2 Delivery Room Air Capillary Refill : Less Than 3 Seconds Height, Weight, BMI Height: '" Weight: lbs. oz. kg; 21.00 BMI Method: General Appearance: WD/WN, no apparent distress HEENT: PERRL/EOMI, normal ENT inspection, TMs normal, pharynx normal Neck: non-tender, full range of motion, supple, normal inspection Respiratory: chest non-tender, lungs clear, normal breath sounds, no respiratory distress, no accessory muscle use Cardiovascular: regular rate, rhythm, no edema, no gallop, no JVD Gastrointestinal: normal bowel sounds, non tender, soft, no organomegaly Back: normal inspection, no CVA tenderness Extremities: normal range of motion, non-tender, normal inspection, no pedal edema, no calf tenderness 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, no motor/sensory deficits, alert, normal mood/affect Coordination/Gait: normal finger to nose, normal gait Motor/Sensory: no motor deficit, no sensory deficit Skin: normal color, warm/dry Lymphatic: no adenopathy Procedures/Interventions Suture Size: 6-0 Progress/Results/Core Measures Results/Orders Lab Results Laboratory Tests Test 07/10/22 11:35 07/10/22 18:00 Range/Units White Blood Count 6.2 4.3-11.0 10^3/uL Red Blood Count 4.80 4.30-5.52 10^6/uL Hemoglobin 15.1 13.3-17.7 g/dL Hematocrit 42 40-54 % Mean Corpuscular Volume 88 80-99 fL Mean Corpuscular Hemoglobin 32 25-34 pg Mean Corpuscular Hemoglobin Concent 36 32-36 g/dL Red Cell Distribution Width 13.0 10.0-14.5 % Platelet Count 204 130-400 10^3/uL Mean Platelet Volume 9.7 9.0-12.2 fL Immature Granulocyte % (Auto) 1 % Neutrophils (%) (Auto) 63 42-75 % Lymphocytes (%) (Auto) 26 12-44 % Monocytes (%) (Auto) 8 0-12 % Eosinophils (%) (Auto) 2 0-10 % Basophils (%) (Auto) 1 0-10 % Neutrophils # (Auto) 4.0 1.8-7.8 10^3/uL Lymphocytes # (Auto) 1.6 1.0-4.0 10^3/uL Monocytes # (Auto) 0.5 0.0-1.0 10^3/uL Eosinophils # (Auto) 0.1 0.0-0.3 10^3/uL Basophils # (Auto) 0.1 0.0-0.1 10^3/uL Immature Granulocyte # (Auto) 0.0 0.0-0.1 10^3/uL Sodium Level 142 135-145 MMOL/L Potassium Level 3.7 3.6-5.0 MMOL/L Chloride Level 114 H 98-107 MMOL/L Carbon Dioxide Level 17 L 21-32 MMOL/L Anion Gap 11 5-14 MMOL/L Blood Urea Nitrogen 14 7-18 MG/DL Creatinine 1.01 0.60-1.30 MG/DL Estimat Glomerular Filtration Rate 107 BUN/Creatinine Ratio 14 Glucose Level 132 H 70-105 MG/DL Calcium Level 8.6 8.5-10.1 MG/DL Corrected Calcium 8.2 L 8.5-10.1 MG/DL Total Bilirubin 0.5 0.1-1.0 MG/DL Aspartate Amino Transf (AST/SGOT) 23 5-34 U/L Alanine Aminotransferase (ALT/SGPT) 35 0-55 U/L Alkaline Phosphatase 58 40-136 U/L Total Protein 6.9 6.4-8.2 GM/DL Albumin 4.5 3.2-4.5 GM/DL Lipase 9 8-78 U/L Serum Alcohol < 10 <10 MG/DL Urine Opiates Screen NEGATIVE NEGATIVE Urine Oxycodone Screen NEGATIVE NEGATIVE Urine Methadone Screen NEGATIVE NEGATIVE Urine Propoxyphene Screen NEGATIVE NEGATIVE Urine Barbiturates Screen NEGATIVE NEGATIVE Ur Tricyclic Antidepressants Screen NEGATIVE NEGATIVE Urine Phencyclidine Screen NEGATIVE NEGATIVE Urine Amphetamines Screen NEGATIVE NEGATIVE Urine Methamphetamines Screen NEGATIVE NEGATIVE Urine Benzodiazepines Screen POSITIVE H NEGATIVE Urine Cocaine Screen NEGATIVE NEGATIVE Urine Cannabinoids Screen NEGATIVE NEGATIVE My Orders Orders - SHIRLEY SPEARS Cbc With Automated Diff (07/10/22 11:41) Comprehensive Metabolic Panel (07/10/22 11:41) Alcohol (07/10/22 11:41) Ns Iv 1000 Ml (Sodium Chloride 0.9%) (07/10/22 11:41) Lipase (07/10/22 11:41) Drug Screen Stat (Urine) (07/10/22 11:41) Levetiracetam Level (Keppra) (07/10/22 11:55) Lorazepam Injection (Ativan Injection) (07/10/22 13:15) Levetiracetam Injection (Keppra Injectio (07/10/22 13:09) Lorazepam Injection (Ativan Injection) (07/10/22 13:10) Lorazepam Injection (Ativan Injection) (07/10/22 13:15) Lorazepam Injection (Ativan Injection) (07/10/22 13:30) Levetiracetam Injection (Keppra Injectio (07/10/22 13:16) Ns (Ivpb) (Sodium Chloride 0.9% Ivpb Bag (07/10/22 13:16) Medications Given in ED Current Medications Medications Dose Ordered Sig/Dunia Route Start Time Stop Time Status Last Admin Dose Admin Levetiracetam 500 mg STK-MED ONCE IV 07/10/22 13:16 07/10/22 13:19 DC 07/10/22 13:10 500 MG Lorazepam 1 mg ONCE ONCE IVP 07/10/22 13:15 07/10/22 13:16 DC 07/10/22 13:11 1 MG Lorazepam 1 mg ONCE ONCE IVP 07/10/22 13:15 07/10/22 13:16 DC 07/10/22 13:17 1 MG Sodium Chloride 100 ml @ STK-MED ONCE .ROUTE 07/10/22 13:16 07/10/22 13:19 DC 07/10/22 14:34 400 MLS/HR Vital Signs/I&O 07/10/22 07/10/22 11:20 18:25 Pulse 99 92 Resp 16 20 B/P (MAP) 119/81 (94) 112/83 Pulse Ox 99 100 O2 Delivery Room Air Room Air Blood Pressure Mean: 94 Departure Communication (PCP) Patient with a known history of seizures. Reviewed previous H&P's, ER visits, testing. Currently follows up with neurologist in [place]. Currently on Keppra 750 mg twice daily. Patient drank alcohol last night. Similar episode in the past after drinking the night prior he reports seizures the next day. 3 to 5- minute seizure at home. On arrival patient was more alert and oriented. He Was slightly slow to respond to questions. GCS of 15. Alert and oriented x3. Seizure precautions with padding on the rails. General lab work was ordered CBC, CMP, started on a liter of fluid. After about 2 hours patient had a 30- minute witness seizure. Patient was given 2 mg of Ativan and 500 mg of Keppra IV. Patient remained postictal for about 30 minutes. He was tachycardic. His symptoms did improve. Started becoming more alert and oriented after a hour. Patient was observed for additional 6 hours. No seizures. Patient states that he felt much better. No witnessed seizures during his stay. Keppra level currently pending. Patient feels comfortable to go home at this time. Discussed no driving. Recommend following up with a neurologist. Discussed increase in his Keppra to 1000 mg twice daily until seen by his neurologist. If any worsening symptoms return back to ED. Friends will be with patient this evening. Impression Primary Impression: Seizure Disposition: 01 HOME, SELF-CARE Condition: Stable Departure-Patient Inst. Decision time for Depature: 18:20 Referrals: [facility] [place],LOCAL PHYSICIAN (PCP) Primary Care Physician Patient Instructions: Seizures Add. Discharge Instructions: Recommend following up with your neurologist for further evaluation. If any continued seizures return back to ED. Recommend no driving. Recommend someone watching over patient this evening All discharge instructions reviewed with patient and/or family. Voiced understanding. Scripts Levetiracetam (Keppra) 500 Mg Tablet 1000 MG PO BID, #60 TAB Prov: SHIRLEY SPEARS 07/10/22 SHIRLEY SPEARS Jul 10, 2022 11:50
[2022-07-10 11:51] LABS: CALCIUM 8.6 MG/DL (8.5-10.1)
[2022-07-10 11:52] LABS: GLUCOSE 132 MG/DL (70-105)
[2022-07-10 11:53] LABS: CARBON DIOXIDE 17 MMOL/L (21-32); TOTAL PROTEIN 6.9 GM/DL (6.4-8.2)
[2022-07-10 11:54] LABS: BILIRUBIN,TOTAL 0.5 MG/DL (0.1-1.0)
[2022-07-10 11:56] LABS: ALKALINE PHOSPHATASE 58 U/L (40-136); CREATININE SERUM 1.01 MG/DL (0.60-1.30); GFR ESTIMATED 107
[2022-07-10 11:57] LABS: BUN/CREATININE RATIO 14
[2022-07-10 11:59] LABS: ALANINE AMINOTRANSFERASE 35 U/L (0-55)
[2022-07-10 12:00] LABS: LIPASE 9 U/L (8-78)
[2022-07-10] MEDS ORDERED: LORazepam INJ 2 MG/ML (ATIVAN) VIAL ONE (13:10)
[2022-07-10] MEDS ORDERED: LORazepam INJ 2 MG/ML (ATIVAN) VIAL IVP ONE ×3 (13:15→13:30)
[2022-07-10] MEDS ORDERED: NS (IVPB) 100 ML ONE (13:16)
[2022-07-10] MEDS ORDERED: LEVE500T99 PO (18:21)
[2022-07-10 18:23] LABS: AMPHETAMINE SCREEN, URINE NEGATIVE (NEGATIVE); BARBITURATE SCREEN URINE NEGATIVE (NEGATIVE); BENZODIAZEPINES SCREEN URINE POSITIVE (NEGATIVE); CANNABINOID SCREEN, URINE NEGATIVE (NEGATIVE); COCAINE SCREEN URINE NEGATIVE (NEGATIVE); METHADONE STAT NEGATIVE (NEGATIVE); OPIATE SCREEN URINE NEGATIVE (NEGATIVE); OXYCODONE STAT NEGATIVE (NEGATIVE); PROPOXYPHENE STAT NEGATIVE (NEGATIVE); TRICYCLIC ANTIDEPRESSANTS SCRE NEGATIVE (NEGATIVE)
[2022-07-10 18:25] VITALS: BP 112/83
== END 2022-07-10 18:30 | disposition home or self-care (01) ==
LOC: ER 11:18 → EDUNIT# 11:18 → ER 18:30
DX: G40.909 Epilepsy, unspecified, not intractable, without status epilepticus (principal); Z79.899 Other long term (current) drug therapy
CPT/HCPCS: 80053; 80177; 80306; 83690; 85025; 99283; G0480; 36415; 80320

== ENCOUNTER 2022-11-08 12:24 | Emergency (ER) | payer OTHER ==
[~2022-11-08] VITALS: Ht 187 cm; Wt 77.0 kg
--- NOTE | 2022-11-08 13:18 | Diagnostic Imaging Report ---
Indication: Medial left knee pain. Time of Exam: 1:07 PM Three views of the left knee were obtained. Alignment is normal. Joint spaces are well-maintained. Articular surfaces are smooth. No fracture, dislocation or effusion is detected. IMPRESSION: No acute bony abnormality is detected. Dictated by: Dictated on workstation # [id number]
--- NOTE | 2022-11-08 13:30 | ED Lower Extremity ---
General Chief Complaint: Lower Extremity Stated Complaint: INJ LEFT KNEE Nursing Triage Note: pt presents to ed with complaints of l knee pain since last thursday when he injured playing sand volleyball. History of Present Illness Date Seen by Provider: Nov 08, 2022 Time Seen by Provider: 12:45 Initial Comments 27 year old male reports 6 days ago he was playing sand volleyball, he jumped up and landed with a valgus injury to the left knee. Patient denies any previous history of injuries to his knee. He has been able to ambulate and continue working but has occasional swelling and pain in his knee. He has not required any pain medicine recently. No instability or buckling. Onset: other (11/02/22) Pain/Injury Location: left knee Method of Injury: sports injury Modifying Factors: Improves With Rest Allergies and Home Medications Allergies Coded Allergies: No Known Drug Allergies (Unverified , 03/13/21) Patient Home Medication List Home Medication List Reviewed: Yes Acetaminophen (Tylenol) 325 Mg Tablet, 650 MG PO Q8H PRN for PAIN-MILD (1-4), (Reported) Entered as Reported by: LACI BETTS on 07/13/19948 Cetirizine HCl (Zyrtec) 10 Mg Tablet, 10 MG PO DAILY PRN for ALLERGY SYMPTOMS, (Reported) Entered as Reported by: LACI BETTS on 07/13/19948 Levetiracetam (Keppra) 500 Mg Tablet, 500 MG PO BID Prescribed by: MEHNAZ ACKERMAN on 07/28/19 0928 Levetiracetam (Keppra) 500 Mg Tablet, 1,000 MG PO BID Prescribed by: ERA GREENE on 07/10/22 1821 Review of Systems Constitutional: no symptoms reported, see HPI Musculoskeletal: see HPI, joint pain (left knee) All Other Systems Reviewed Negative Unless Noted: Yes Past Okyqcuj-Wcdwxr-Dgwpkj Hx Patient Social History Tobacco Use?: Yes Tobacco type used: Cigars Smoking Status: Current Someday Smoker Smokeless Tobacco Frequency: Never a User Use of E-Cig and/or Vaping Arturo: Never a User Substance use?: No Alcohol Use?: Yes Alcohol Frequency: Once in a while Pt feels they are or have been: No Immunizations Up To Date Tetanus Booster (TDap): Unknown PED Vaccines UTD: Yes Seasonal Allergies Seasonal Allergies: Yes Past Medical History Surgery/Hospitalization HX: seizures Surgeries: No Respiratory: No Cardiac: No Neurological: Yes (SEIZURE LIKE ACTIVITY AT ADMIT 07/12/2019) Seizure Disorder Genitourinary: No Gastrointestinal: No Musculoskeletal: No Endocrine: No HEENT: No Cancer: No Psychosocial: No Integumentary: No Blood Disorders: No Family Medical History Reviewed Nursing Family Hx Physical Exam Vital Signs Vital Signs - First Documented 11/08/22 12:39 Temp 35.6 Pulse 65 Resp 16 B/P (MAP) 115/87 (96) Pulse Ox 100 Capillary Refill : Less Than 3 Seconds Height, Weight, BMI Height: '" Weight: lbs. oz. kg; 22.00 BMI Method: General Appearance: WD/WN, no apparent distress Cardiovascular: normal peripheral pulses, regular rate, rhythm Respiratory: chest non-tender, lungs clear, normal breath sounds Knees: left knee normal inspection, left knee normal range of motion, left knee no evidence of injury, left knee soft tissue tenderness (over MCL), left knee other (Trace laxity with valgus stress testing, Neg Tania and Ant drawer. ) Neurologic/Psychiatric: no motor/sensory deficits, alert, normal mood/affect, oriented x 3 Skin: normal color, warm/dry Procedures/Interventions Suture Size: 6-0 Progress/Results/Core Measures Results/Orders My Orders Orders - DELORIS PEÑA Knee, Left, 3 Views (11/08/22 12:42) Vital Signs/I&O 11/08/22 12:39 Temp 35.6 Pulse 65 Resp 16 B/P (MAP) 115/87 (96) Pulse Ox 100 Blood Pressure Mean: 96 Diagnostic Imaging Diagonstic Imaging: Xray Plain Films/CT/US/NM/MRI: knee Comments NAME: BARTONANNABEL Alvarenga Roland [facility] REC#: [id number] PT STATUS: REG ER : 1995 PHYSICIAN: DELORIS PEÑA ADMIT DATE: 11/08/22/ER Draft Date of Exam:11/08/22 KNEE, LEFT, 3 VIEWS Indication: Medial left knee pain. Time of Exam: 1:07 PM Three views of the left knee were obtained. Alignment is normal. Joint spaces are well-maintained. Articular surfaces are smooth. No fracture, dislocation or effusion is detected. IMPRESSION: No acute bony abnormality is detected. Dictated on workstation # [id number] Dict: 11/08/22 1314 Trans: 11/08/22 1317 [facility] [id number] Interpreted by: CONRAD RIOS MD Electronically signed by: Reviewed: Reviewed by Me Departure Impression Primary Impression: Left knee pain Qualified Codes: M25.562 - Pain in left knee Additional Impression: MCL sprain of left knee Qualified Codes: S83.412A - Sprain of medial collateral ligament of left k nee, initial encounter Disposition: HOME, SELF-CARE Condition: Improved (ERASED) Departure-Patient Inst. Decision time for Depature: 13:15 Referrals: [facility]/JAYLA JUARES,LOCAL PHYSICIAN (PCP) Primary Care Physician KYLE CALVIN MD, MICHAEL P MD Patient Instructions: Ligament Injuries in the Knee (DC) Add. Discharge Instructions: Alternate ibuprofen 600 mg and Tylenol 650 mg every 4 hours for left knee pain Use Ayush wrap to left knee for swelling. Ice to left knee for 20 minutes every 2-3 hours as needed for swelling. Follow-up at [facility] walk-in if symptoms or not improving or worsening. If your insurance allows you may schedule appointment with orthopedics if symptoms or not improving. Return to the emergency department for new, urgent healthcare needs. All discharge instructions reviewed with patient and/or family. Voiced understanding. DELORIS PEÑA Nov 08, 2022 13:30
[2022-11-08 13:39] VITALS: BP 115/87
== END 2022-11-08 13:39 | disposition home or self-care (01) ==
LOC: EDUNIT# 12:24 → ER 12:28
DX: S83.412A Sprain of medial collateral ligament of left knee, initial encounter (principal); F17.290 Nicotine dependence, other tobacco product, uncomplicated; X58.XXXA Exposure to other specified factors, initial encounter; Y93.68 Activity, volleyball (beach) (court)
CPT/HCPCS: 73562